=== PATIENT | female | born 1975 | race African-American/Black ===

== ENCOUNTER 2018-09-15 15:42 | Emergency (ER) | payer MEDICAID ==
[2018-09-15] MEDS ORDERED: ASPIRIN 81 MG TABLET, CHEWABLE PO ONE (17:05)
--- NOTE | 2018-09-15 17:22 | ER Document Report ---
ED Medical Screen (RME) - General Chief Complaint: Chest Pain Stated Complaint: CHEST PAIN Time Seen by Provider: 09/15/18 16:55 Mode of Arrival: Ambulatory Information source: Patient Notes: Patient is a 43-year-old female who presents to the emergency department with chief complaint of chest pain, low back pain, episodes of near syncope and dizziness. Patient reports that she was diagnosed with diabetes last year and is supposed to be taking 2 different insulins. Patient reports that she has not had her insulin in several months and has not checked her blood sugar since March. Patient reports nausea but denies any vomiting or diarrhea. Patient states the chest pain is a across her chest and feels like a pressure. Patient denies history of any myocardial infarction. PHYSICAL EXAMINATION: GENERAL: Well-appearing, well-nourished and in no acute distress. LUNGS: Breath sounds clear to auscultation bilaterally and equal. No wheezes rales or rhonchi. HEART: Regular rate and rhythm without murmurs PSYCH: Normal mood, normal affect. SKIN: Warm, Dry, normal turgor, no rashes or lesions noted. I have greeted and performed a rapid initial assessment of this patient. A comprehensive ED assessment and evaluation of the patient, analysis of test results and completion of the medical decision making process will be conducted by additional ED providers. Dictation of this chart was performed using voice recognition software; therefore, there may be some unintended grammatical errors. TRAVEL OUTSIDE OF THE [place] IN LAST 30 DAYS: No - Related Data Allergies/Adverse Reactions: No Known Allergies Allergy (Verified 09/15/18 16:51) Past Medical History - Past Medical History Cardiac Medical History: Reports: Hx Hypercholesterolemia, Hx Hypertension Endocrine Medical History: Reports: Hx Diabetes Mellitus Type 2 Renal/ Medical History: Denies: Hx Peritoneal Dialysis Past Surgical History: Reports: Hx Section, Hx Tubal Ligation Physical Exam - Vital signs Vitals: Temp Pulse Resp BP Pulse Ox 98.3 F 78 20 152/97 H 99 09/15/18 15:58 09/15/18 15:58 09/15/18 15:58 09/15/18 15:58 09/15/18 15:58 Course - Vital Signs Vital signs: Temp Pulse Resp BP Pulse Ox 98.3 F 78 20 152/97 H 99 09/15/18 15:58 09/15/18 15:58 09/15/18 15:58 09/15/18 15:58 09/15/18 15:58 Doctor's Discharge - Discharge Referrals: VIKRAM MORGAN MD [Primary Care Provider] - Follow up as needed
--- NOTE | 2018-09-15 17:56 | RADIOLOGY REPORT (SQ) ---
EXAM DESCRIPTION: CHEST SINGLE VIEW COMPLETED DATE/TIME: 09/15/2018 5:40 pm REASON FOR STUDY: chest pain COMPARISON: None. EXAM PARAMETERS: NUMBER OF VIEWS: One view. TECHNIQUE: Single frontal radiographic view of the chest acquired. RADIATION DOSE: NA LIMITATIONS: None. FINDINGS: LUNGS AND PLEURA: No opacities, masses or pneumothorax. No pleural effusion. MEDIASTINUM AND HILAR STRUCTURES: No masses. Contour normal. HEART AND VASCULAR STRUCTURES: Heart normal in size. Normal vasculature. BONES: No acute findings. HARDWARE: None in the chest. OTHER: No other significant finding. IMPRESSION: NO ACUTE RADIOGRAPHIC FINDING IN THE CHEST. TECHNICAL DOCUMENTATION: JOB ID: [id number] [employer]- All Rights Reserved Reading location - IP/workstation name: [email or web address]
[2018-09-15 18:07] LABS: ABSOLUTE BASOPHILS # (AUTO) 0.1 10^3/uL (0.0-0.2); ABSOLUTE EOSINOPHILS # (AUTO) 0.3 10^3/uL (0.0-0.6); ABSOLUTE MONOCYTES (AUTO) 0.6 10^3/uL (0.1-1.4); ABSOLUTE NEUT (AUTO) 4.5 10^3/uL (1.7-8.2); EOSINOPHILS % (AUTO) 3.2 % (0-6); HEMATOCRIT 39.4 % (36.0-47.0); LYMPHOCYTES % (AUTO) 35.2 % (13-45); MEAN CORPUSCULAR HEMOGLOBIN 22.7 pg (27.0-33.4); MEAN CORPUSCULAR HGB CONC 33.1 g/dL (32.0-36.0); MEAN CORPUSCULAR VOLUME 69 fl (80-97); MONOCYTES % (AUTO) 7.1 % (3-13); PLATELET COUNT 372 10^3/uL (150-450); RED BLOOD COUNT 5.73 10^6/uL (3.72-5.28); RED CELL DISTRIBUTION WIDTH 15.9 % (11.5-14.0); SEGMENTED NEUTROPHILS % (AUTO) 53.5 % (42-78); TOTAL CELLS COUNTED % (AUTO) 100 %; WHITE BLOOD COUNT 8.5 10^3/uL (4.0-10.5)
[2018-09-15 18:26] LABS: ALANINE AMINOTRANSFERASE 12 U/L (9-52); ALKALINE PHOSPHATASE 93 U/L (38-126); ANION GAP 9 (5-19); ASPARTATE AMINO TRANSFERASE 21 U/L (14-36); BILIRUBIN,DIRECT 0.3 mg/dL (0.0-0.4); BILIRUBIN,TOTAL 0.3 mg/dL (0.2-1.3); BLOOD UREA NITROGEN 12 mg/dL (7-20); CALCIUM 9.4 mg/dL (8.4-10.2); CARBON DIOXIDE 27 mmol/L (22-30); CHLORIDE 103 mmol/L (98-107); CREATINE KINASE 233 U/L (30-135); GLUCOSE 120 mg/dL (75-110); POTASSIUM 4.6 mmol/L (3.6-5.0); SODIUM 139.4 mmol/L (137-145); TOTAL PROTEIN 7.4 g/dL (6.3-8.2)
[2018-09-15 18:39] LABS: CREATINE KINASE MB 1.38 ng/mL (<4.55); TROPONIN I < 0.012 ng/mL
[2018-09-15] MEDS ORDERED: LIDOCAINE 1% INJ-PF (10 MG/ML) 30 ML SDV ONE (18:41)
[2018-09-15] MEDS ORDERED: NORMAL SALINE 1000 ML 1,000 ML IV ONE (18:54)
[2018-09-15] MEDS ORDERED: ONDANSETRON HCL INJ/PF 4 MG/2 ML SDV IV ONE ×2 (18:54→21:15)
--- NOTE | 2018-09-15 19:06 | ER Document Report ---
ED General - General Chief Complaint: Chest Pain Stated Complaint: CHEST PAIN Time Seen by Provider: 09/15/18 16:55 Mode of Arrival: Ambulatory TRAVEL OUTSIDE OF THE [place] IN LAST 30 DAYS: No - HPI Notes: 43-year-old female past medical history of hypertension, insulin-dependent diabetes mellitus, and sickle cell anemia presents to the emergency room for chest pain, lower back pain, lightheadedness. She endorses lightheadedness began 1 week ago became more "worse last night where she vomited blood one time. He said the blood was kind of scant and it was not gross. She went to work today said she almost passed out was stumbling had a little bit of chest pain. She says the chest pain is related to coughing and breathing. Endorses fevers, chills, lightheadedness, mild headache, nausea, decreased appetite, low back pain. Patient denies sinus pain, sore throat, diarrhea, urinary symptoms. EKG done in triage no evidence of STEMI or ischemia. - Related Data Allergies/Adverse Reactions: No Known Allergies Allergy (Verified 09/15/18 16:51) Past Medical History - General Information source: Patient - Social History Smoking Status: Current Every Day Smoker Family History: Reviewed & Not Pertinent Patient has suicidal ideation: No Patient has homicidal ideation: No - Past Medical History Cardiac Medical History: Reports: Hx Hypercholesterolemia, Hx Hypertension Endocrine Medical History: Reports: Hx Diabetes Mellitus Type 2 Renal/ Medical History: Denies: Hx Peritoneal Dialysis Past Surgical History: Reports: Hx Section, Hx Tubal Ligation Review of Systems - Review of Systems Constitutional: See HPI EENT: See HPI Cardiovascular: See HPI Respiratory: See HPI Gastrointestinal: See HPI Genitourinary: No symptoms reported Female Genitourinary: No symptoms reported Musculoskeletal: See HPI Skin: No symptoms reported Hematologic/Lymphatic: No symptoms reported Neurological/Psychological: No symptoms reported Physical Exam - Vital signs Vitals: Temp Pulse Resp BP Pulse Ox 98.3 F 78 20 152/97 H 99 09/15/18 15:58 09/15/18 15:58 09/15/18 15:58 09/15/18 15:58 09/15/18 15:58 Interpretation: Normal - General General appearance: Appears well, Alert - HEENT Head: Normocephalic, Atraumatic Eyes: Normal Conjunctiva: Normal Extraocular movements intact: Yes Pupils: PERRL - Respiratory Respiratory status: No respiratory distress Breath sounds: Wheezing Chest palpation: Normal - Cardiovascular Rhythm: Regular Heart sounds: Normal auscultation Murmur: No Pulses: Normal: Radial - Abdominal Inspection: Normal Distension: No distension Bowel sounds: Normal Tenderness: Nontender Organomegaly: No organomegaly - Back Back: Normal, Nontender - Extremities General upper extremity: Normal inspection, Nontender, Normal color, Normal ROM , Normal temperature General lower extremity: Normal inspection, Nontender, Normal color, Normal ROM , Normal temperature, Normal weight bearing. No: Simón's sign - Neurological Neuro grossly intact: Yes Cognition: Normal Orientation: AAOx4 Jose Coma Scale Eye Opening: Spontaneous Helena Coma Scale Verbal: Oriented Jose Coma Scale Motor: Obeys Commands Jose Coma Scale Total: 15 Speech: Normal Motor strength normal: LUE, RUE, LLE, RLE Sensory: Normal - Psychological Associated symptoms: Normal affect, Normal mood - Skin Skin Temperature: Warm Skin Moisture: Dry Skin Color: Normal Course - Re-evaluation Re-evalutation: 09/15/18 19:24 On physical exam patient noted with wheezing, will order DuoNeb. 09/15/18 21:17 Upon reexamination patient was diffuse wheezing bilateral. Ordered a second DuoNeb. X-ray normal, EKG normal, troponin negative. No evidence of anemia. Analysis negative, no evidence of blood. No CVA tenderness. After second DuoNeb wheezing resolved. Patient is safe to discharge home. Will dispense ED rapid Zofran pack. - Vital Signs Vital signs: Temp Pulse Resp BP Pulse Ox 98.3 F 78 25 H 135/88 H 100 09/15/18 15:58 09/15/18 15:58 09/15/18 21:24 09/15/18 21:24 09/15/18 21:24 - Laboratory Result Diagrams: 09/15/18 17:50 09/15/18 17:50 Laboratory results interpreted by me: 09/15/18 09/15/18 17:50 17:50 RBC 5.73 H MCV 69 L MCH 22.7 L RDW 15.9 H Glucose 120 H Creatine Kinase 233 H Discharge - Discharge Clinical Impression: Nausea, Chest pain of uncertain etiology Condition: Stable Disposition: HOME, SELF-CARE Instructions: Chest Wall Pain ([facility]), Chest Pain of Unclear Cause ([facility]) Additional Instructions: You have been seen in the Emergency Department (ED) today for nausea and vomiting. Your work up today has not shown a clear cause for your symptoms. You have been prescribed Zofran; please use as prescribed as needed for your nausea. You were also seen today for chest pain. The exact cause of your pain is unclear. However, based on your cardiac enzyme testing, chest x-ray, and EKG it does not appear that it is from an immediately life-threatening cause at this time. Although your testing here is normal is critical that you follow-up with your primary care physician for continued evaluation of this chest pain and possible stress testing. I recommended you see your physician within the next 24-48 hours to be evaluated for consideration of a stress test. Please return to emergency department immediately if you have worsening of your chest pain, shortness of breath, vomiting, become unable to exert yourself due to pain or difficulty breathing, you pass out, or have any pain that radiates into your arms, jaw, or back. Please also return if you have any additional symptoms that are concerning to you. Return to the Emergency Department (ED) if you develop abdominal pain, bloody vomiting, bloody diarrhea, if you are unable to tolerate fluids due to vomiting , or if you develop other symptoms that concern you. Prescriptions: Ondansetron [Zofran Odt 4 mg Tablet (6 Tab/ER Disp)] 6 tab PO Q6HP PRN #1 dspk PRN Reason: Ondansetron [Zofran Odt 4 mg Tablet] 1 - 2 tab PO Q4H PRN #15 tab.rapdis PRN Reason: For Nausea/Vomiting Referrals: VIKRAM MORGAN MD [[facility]] - Follow up as needed
[2018-09-15 19:22] LABS: APPEARANCE,URINE CLEAR; BILIRUBIN,URINE NEGATIVE (NEGATIVE); COLOR,URINE YELLOW; GLUCOSE, URINE NEGATIVE (NEGATIVE); KETONES,URINE NEGATIVE (NEGATIVE); LEUKOCYTE ESTERASE,URINE NEGATIVE (NEGATIVE); NITRITE,URINE NEGATIVE (NEGATIVE); PROTEIN,URINE NEGATIVE (NEGATIVE); URINE SPECIFIC GRAVITY 1.015; UROBILINOGEN,URINE NEGATIVE mg/dL (<2.0)
[2018-09-15] MEDS ORDERED: IPRATROPIUM/ALBUTEROL 0.5-2.5 MG/3 ML AMPUL NEB ONE ×2 (19:36→20:08)
[2018-09-15 21:26] VITALS: BP 135/88
--- NOTE | 2018-09-16 00:18 | EKG REPORT ---
SEVERITY:- NORMAL ECG - SINUS RHYTHM : Confirmed by: Ivis Solorio 16-Sep-2018 00:18:22
== END 2018-09-15 22:10 | disposition home or self-care (01) ==
LOC: ER 15:42
DX: R07.1 Chest pain on breathing (principal); K92.0 Hematemesis; R06.2 Wheezing; M54.5 Low back pain; R42 Dizziness and giddiness; R50.9 Fever, unspecified; R51 Headache; R63.0 Anorexia; F17.200 Nicotine dependence, unspecified, uncomplicated; I10 Essential (primary) hypertension; E11.9 Type 2 diabetes mellitus without complications; Z79.4 Long term (current) use of insulin
CPT/HCPCS: 93005; 96376; 94640 ×2; 99285; 96361; 96374; 36415; 82553; 82550; 85025; 80053; 81001; 84484; 71045; 93010; J2405; J7030; J7620

== ENCOUNTER 2018-11-30 10:21 | Emergency (ER) | payer MEDICAID ==
--- NOTE | 2018-11-30 11:09 | ER Document Report ---
ED General - General Chief Complaint: Abdominal Pain Stated Complaint: STOMACH PAIN Time Seen by Provider: 11/30/18 10:52 Notes: 43-year-old female presents with no period for 1 month. She normally gets a menstrual cycle each month but it does not come all this month. She had sex early in October and is since been having unprotected sex with the same person. She has lower abdominal pain as well with some increased discharge. Denies fevers or vomiting. History of tubal ligation. TRAVEL OUTSIDE OF THE [place] IN LAST 30 DAYS: No - Related Data Allergies/Adverse Reactions: No Known Allergies Allergy (Verified 09/15/18 16:51) Past Medical History - Social History Smoking Status: Current Some Day Smoker Family History: Reviewed & Not Pertinent Patient has suicidal ideation: No Patient has homicidal ideation: No - Past Medical History Cardiac Medical History: Reports: Hx Hypercholesterolemia, Hx Hypertension Endocrine Medical History: Reports: Hx Diabetes Mellitus Type 2 Renal/ Medical History: Denies: Hx Peritoneal Dialysis Past Surgical History: Reports: Hx Section, Hx Tubal Ligation Review of Systems - Review of Systems Notes: REVIEW OF SYSTEMS GEN: Denies fever, chills, weight loss ENT: Denies sore throat, nasal discharge, ear pain EYES: Denies blurry vision, eye pain, discharge CV: Denies chest pain, palpitations, edema RESP: Denies cough, shortness of breath, wheezing GI: Abdominal pain MSK: Denies joint pain/swelling, edema, SKIN: Denies rash, skin lesions LYMPH: Denies swollen glands/lymph nodes NEURO: Denies headache, focal weakness or numbness, dizziness PSYCH: Denies depression, suicidal or homicidal ideation PHYSICAL EXAMINATION General: No acute distress, well-nourished Head: Atraumatic, normocephalic ENT: Mouth normal, oropharynx moist, no exudates or tonsillar enlargement Eyes: Conjunctiva normal, pupils equal, lids normal Neck: No JVD, supple, no guarding CVS: Normal rate, regular rhythm, no murmurs Resp: No resp distress, equal and normal breath sounds bilaterally GI: Nondistended, soft, will suprapubic tenderness to palpation, no rebound or guarding Ext: No deformities, no edema, normal range of motion in upper and lower ext Back: No CVA or midline TTP Skin: No rash, warm Lymphatic: No lymphadeopathy noted Neuro: Awake, alert. Face symmetric. GCS 15. Physical Exam - Vital signs Vitals: Temp Pulse Resp BP Pulse Ox 98.2 F 78 16 144/85 H 98 11/30/18 10:45 11/30/18 10:45 11/30/18 10:45 11/30/18 10:45 11/30/18 10:45 Course - Re-evaluation Re-evalutation: 11/30/18 11:09 Amenorrhea with lower abdominal pain mild tenderness and discharge with unprotected sex likely STI plus or minus . 11/30/18 11:25 UA U negative. Wet prep negative. Other than leukorrhea. Will treat empirically for chlamydia gonorrhea, test will be pending. Patient will be discharged to follow-up with women's health. I have discussed with the patient there likely diagnosis, aftercare plan, follow-up plans and my usual and customary return precautions. They verbalized understanding of this. 11/30/18 11:46 - Vital Signs Vital signs: Temp Pulse Resp BP Pulse Ox 98.2 F 78 16 144/85 H 98 11/30/18 10:45 11/30/18 10:45 11/30/18 10:45 11/30/18 10:45 11/30/18 10:45 Discharge - Discharge Clinical Impression: Pelvic pain Condition: Good Disposition: HOME, SELF-CARE Instructions: Abdominal Pain ([facility]) Additional Instructions: We treated you just in case for STDs, and your testing should be available in 1- 2 days. If you do not get a call from us please call us to inquire about your results. You are not and we did not find an emergency cause of your missed. But you need to follow-up with women's health for further testing. I Referrals: [facility] [Provider Group] - Follow up as needed [facility] [Provider Group] - Follow up as needed
[2018-11-30 11:14] LABS: APPEARANCE,URINE SLIGHTLY-CLOUDY; BILIRUBIN,URINE NEGATIVE (NEGATIVE); COLOR,URINE YELLOW; GLUCOSE, URINE NEGATIVE (NEGATIVE); KETONES,URINE NEGATIVE (NEGATIVE); LEUKOCYTE ESTERASE,URINE NEGATIVE (NEGATIVE); NITRITE,URINE NEGATIVE (NEGATIVE); PROTEIN,URINE NEGATIVE (NEGATIVE); URINE SPECIFIC GRAVITY 1.017; UROBILINOGEN,URINE NEGATIVE mg/dL (<2.0)
[2018-11-30] MEDS ORDERED: AZITHROMYCIN 1 GM SUSP PACKET PO ONE (11:24)
[2018-11-30] MEDS ORDERED: CEFTRIAXONE INJ 250 MG VIAL IM ONE (11:25)
[2018-11-30 11:28] LABS: BACTERIA (WET MOUNT) 4+ BACTERIA SEEN; EPITHELIALS (WET MOUNT) 4+ EPITHELIALS SEEN; T.VAGINALIS (WET MOUNT) NO TRICHOMONAS SEEN; WBCS (WET MOUNT) 1+ WBCS SEEN; YEAST (WET MOUNT) NO YEAST SEEN
[2018-11-30 12:40] VITALS: BP 149/93
[2018-11-30 13:08] LABS: CHLAM PCR NOT DETECTED (NOT DETECT); GON PCR NOT DETECTED (NOT DETECT)
== END 2018-11-30 12:41 | disposition home or self-care (01) ==
LOC: ER 10:21
DX: R10.2 Pelvic and perineal pain (principal); N89.8 Other specified noninflammatory disorders of vagina; N91.2 Amenorrhea, unspecified; I10 Essential (primary) hypertension; E11.9 Type 2 diabetes mellitus without complications; F17.200 Nicotine dependence, unspecified, uncomplicated; Z98.51 Tubal ligation status
CPT/HCPCS: 99284; 96372; 87210; 81025; 81001; 87491; 87591; Q0144; J0696

== ENCOUNTER 2018-12-02 10:19 | Emergency (ER) | payer MEDICAID ==
--- NOTE | 2018-12-02 10:39 | ER Document Report ---
ED Medical Screen (RME) - General Chief Complaint: Weakness Stated Complaint: WEAKNESS TRAVEL OUTSIDE OF THE [place] IN LAST 30 DAYS: No - HPI Notes: 12/02/18 10:39 Recently moved to the area of all of her home medications history of diabetes hypertension smoking stating feeling weak. - Related Data Allergies/Adverse Reactions: No Known Allergies Allergy (Verified 12/02/18 10:21) Past Medical History - Past Medical History Cardiac Medical History: Reports: Hx Hypercholesterolemia, Hx Hypertension Endocrine Medical History: Reports: Hx Diabetes Mellitus Type 2 Renal/ Medical History: Denies: Hx Peritoneal Dialysis Past Surgical History: Reports: Hx Section, Hx Tubal Ligation Review of Systems - Review of Systems Constitutional: Weakness Physical Exam - Vital signs Vitals: Temp Pulse Resp BP Pulse Ox 97.8 F 81 16 144/87 H 98 12/02/18 10:24 12/02/18 10:24 12/02/18 10:24 12/02/18 10:24 12/02/18 10:24 - Respiratory Breath sounds: Wheezing - Cardiovascular Rhythm: Regular Heart sounds: Normal auscultation Course - Vital Signs Vital signs: Temp Pulse Resp BP Pulse Ox 97.8 F 81 16 144/87 H 98 12/02/18 10:24 12/02/18 10:24 12/02/18 10:24 12/02/18 10:24 12/02/18 10:24
[2018-12-02] MEDS ORDERED: IPRATROPIUM/ALBUTEROL 0.5-2.5 MG/3 ML AMPUL NEB ONE (10:40)
[2018-12-02 11:26] LABS: ABSOLUTE EOSINOPHILS # (AUTO) 0.3 10^3/uL (0.0-0.6); ABSOLUTE LYMPHOCYTES (AUTO) 2.1 10^3/uL (0.5-4.7); ABSOLUTE MONOCYTES (AUTO) 0.6 10^3/uL (0.1-1.4); ABSOLUTE NEUT (AUTO) 6.2 10^3/uL (1.7-8.2); BASOPHILS % (AUTO) 0.5 % (0-2); EOSINOPHILS % (AUTO) 3.6 % (0-6); HEMATOCRIT 40.5 % (36.0-47.0); HEMOGLOBIN 13.4 g/dL (12.0-15.5); LYMPHOCYTES % (AUTO) 23.1 % (13-45); MEAN CORPUSCULAR HEMOGLOBIN 22.8 pg (27.0-33.4); MEAN CORPUSCULAR HGB CONC 33.1 g/dL (32.0-36.0); MEAN CORPUSCULAR VOLUME 69 fl (80-97); MONOCYTES % (AUTO) 6.2 % (3-13); PLATELET COUNT 389 10^3/uL (150-450); RED BLOOD COUNT 5.87 10^6/uL (3.72-5.28); SEGMENTED NEUTROPHILS % (AUTO) 66.6 % (42-78); TOTAL CELLS COUNTED % (AUTO) 100 %; WHITE BLOOD COUNT 9.3 10^3/uL (4.0-10.5)
[2018-12-02 11:27] LABS: APPEARANCE,URINE SLIGHTLY-CLOUDY; BILIRUBIN,URINE NEGATIVE (NEGATIVE); COLOR,URINE YELLOW; GLUCOSE, URINE NEGATIVE (NEGATIVE); KETONES,URINE NEGATIVE (NEGATIVE); LEUKOCYTE ESTERASE,URINE NEGATIVE (NEGATIVE); NITRITE,URINE NEGATIVE (NEGATIVE); PROTEIN,URINE NEGATIVE (NEGATIVE); URINE SPECIFIC GRAVITY 1.019; UROBILINOGEN,URINE NEGATIVE mg/dL (<2.0)
[2018-12-02 11:40] LABS: ANION GAP 9 (5-19); BLOOD UREA NITROGEN 12 mg/dL (7-20); CALCIUM 9.5 mg/dL (8.4-10.2); CARBON DIOXIDE 28 mmol/L (22-30); CHLORIDE 105 mmol/L (98-107); GLUCOSE 145 mg/dL (75-110); SODIUM 141.6 mmol/L (137-145)
[2018-12-02 11:53] LABS: URINE AMPHETAMINES SCREEN NEGATIVE; URINE BARBITURATES SCREEN NEGATIVE; URINE BENZODIAZEPINES SCREEN NEGATIVE; URINE COCAINE SCREEN NEGATIVE; URINE MARIJUANA (THC) SCREEN UNCONFIRMED POSITIVE; URINE METHADONE SCREEN NEGATIVE; URINE PHENCYCLIDINE SCREEN NEGATIVE
[2018-12-02] MEDS ORDERED: ALBUTEROL SULFATE HFA (90 MCG/PUFF) 8 GM MDI (1 MDI/ER DISP) IH ONE (13:20)
[2018-12-02 13:57] VITALS: BP 136/101
--- NOTE | 2018-12-02 15:28 | ER Document Report ---
Entered by SUZANNE HIDALGO SCRIBE 12/02/18 [id number] Acting as scribe for:VALERIA BARNHART MD ED General - General Chief Complaint: Weakness Stated Complaint: WEAKNESS Time Seen by Provider: 12/02/18 10:49 Mode of Arrival: Ambulatory Information source: Patient Notes: Patient is a 43-year-old female with hypertension, diabetes type 2, sickle cell anemia presents emergency department complaining of general malaise and weakness onset 1 month ago. Patient states "I feel so not good". Patient states that she ran out of her diabetes and hypertension medication approximately 8 months ago. She states that she was prescribed metformin, HCTZ and insulin. Patient also complains of a productive cough and nasal congestion further stating she believes she is "about to get a cold". She also expresses concern for not having a menstrual cycle this month. Patient was seen in the emergency department approximately 2 days ago complaining of lower abdominal pain after he has Rocephin and Zithromax receiving prophylactic. TRAVEL OUTSIDE OF THE [place] IN LAST 30 DAYS: No - Related Data Allergies/Adverse Reactions: No Known Allergies Allergy (Verified 12/02/18 10:21) Past Medical History - General Information source: Patient - Social History Smoking Status: Current Every Day Smoker Cigarette use (# per day): Yes - 3 cigs a day Chew tobacco use (# tins/day): No Smoking Education Provided: No Frequency of alcohol use: Occasional Drug Abuse: Marijuana - daily Family History: Reviewed & Not Pertinent Patient has suicidal ideation: No Patient has homicidal ideation: No - Past Medical History Cardiac Medical History: Reports: Hx Hypercholesterolemia, Hx Hypertension Endocrine Medical History: Reports: Hx Diabetes Mellitus Type 2 Past Surgical History: Reports: Hx Section, Hx Tubal Ligation Review of Systems - Review of Systems Constitutional: See HPI, Malaise, Weakness EENT: No symptoms reported Cardiovascular: No symptoms reported Respiratory: No symptoms reported Gastrointestinal: No symptoms reported Genitourinary: No symptoms reported Female Genitourinary: No symptoms reported Musculoskeletal: No symptoms reported Skin: No symptoms reported Hematologic/Lymphatic: No symptoms reported Neurological/Psychological: No symptoms reported -: Yes All other systems reviewed and negative Physical Exam - Vital signs Vitals: Temp Pulse Resp BP Pulse Ox 97.8 F 81 16 144/87 H 98 12/02/18 10:24 12/02/18 10:24 12/02/18 10:24 12/02/18 10:24 12/02/18 10:24 - Notes Notes: GENERAL: Alert, interacts well. No acute distress. HEAD: Normocephalic, atraumatic. EYES: Pupils equal, round, and reactive to light. Extraocular movements intact. ENT: Oral mucosa moist, tongue midline. NECK: Full range of motion. Supple. Trachea midline. LUNGS: Rhonchi with cough. No respiratory distress. HEART: Regular rate and rhythm. No murmurs, gallops, or rubs. ABDOMEN: Soft, non-tender. Non-distended. Bowel sounds present in all 4 quadrants. EXTREMITIES: Moves all 4 extremities spontaneously. NEUROLOGICAL: Alert and oriented x3. Normal speech. PSYCH: Normal affect, normal mood. SKIN: Warm, dry, normal turgor. No rashes or lesions noted. Course - Re-evaluation Re-evalutation: 12/02/18 13:14 Patient's hemoglobin A1c is only 6.8, she has been off all medications for approximately 7-8 months. I do not understand why she had been on metformin and insulin in the past. She states she was treated with hydrochlorothiazide for her high blood pressure. Seen with her blood pressure is running, I doubt hydrochlorothiazide is adequate. She does report foot and ankle edema when she is on her feet all day. - Vital Signs Vital signs: Temp Pulse Resp BP Pulse Ox 97.8 F 81 16 144/87 H 98 12/02/18 10:24 12/02/18 10:24 12/02/18 10:24 12/02/18 11:31 12/02/18 10:24 - Laboratory Result Diagrams: 12/02/18 10:59 12/02/18 10:59 Laboratory results interpreted by me: 12/02/18 12/02/18 12/02/18 10:59 10:59 10:59 RBC 5.87 H MCV 69 L MCH 22.8 L RDW 16.0 H Glucose 145 H Hemoglobin A1c % 6.8 H Discharge - Discharge Clinical Impression: Bronchitis with bronchospasm Diabetes Qualifiers: Diabetes mellitus type: type 2 Diabetes mellitus long-term insulin use: without termite technician use Diabetes mellitus complication status: without complication Qualified Code(s): E11.9 - Type 2 diabetes mellitus without complications High blood pressure Qualifiers: Hypertension type: essential hypertension Qualified Code(s): I10 - Essential (primary) hypertension Disposition: HOME, SELF-CARE I personally performed the services described in the documentation, reviewed and edited the documentation which was dictated to the scribe in my presence, and it accurately records my words and actions.
== END 2018-12-02 13:57 | disposition home or self-care (01) ==
LOC: ER 10:19
DX: J40 Bronchitis, not specified as acute or chronic (principal); J98.01 Acute bronchospasm; E11.9 Type 2 diabetes mellitus without complications; T38.3X6A Underdosing of insulin and oral hypoglycemic [antidiabetic] drugs, initial encounter; I10 Essential (primary) hypertension; T50.2X6A Underdosing of carbonic-anhydrase inhibitors, benzothiadiazides and other diuretics, initial encounter; Z91.128 Patient's intentional underdosing of medication regimen for other reason; Z91.14 Patient's other noncompliance with medication regimen; R53.1 Weakness; R53.81 Other malaise; R05 Cough; R09.81 Nasal congestion; F17.210 Nicotine dependence, cigarettes, uncomplicated; R09.89 Other specified symptoms and signs involving the circulatory and respiratory systems; R60.0 Localized edema; D57.1 Sickle-cell disease without crisis
CPT/HCPCS: 94640; 99283; 36415; 85025; 80048; 81001; 80307; 83036; J3490; J7620

== ENCOUNTER 2019-01-08 11:20 | Emergency (ER) | payer MEDICAID ==
--- NOTE | 2019-01-08 12:40 | RADIOLOGY REPORT (SQ) ---
EXAM DESCRIPTION: HAND RIGHT 3 VIEWS COMPLETED DATE/TIME: 01/08/2019 12:32 pm REASON FOR STUDY: pain, swelling COMPARISON: None. EXAM PARAMETERS: NUMBER OF VIEWS: Three views. TECHNIQUE: AP, lateral and oblique radiographic images acquired of the right hand. LIMITATIONS: None. FINDINGS: MINERALIZATION: Normal. BONES: No acute fracture or dislocation. No worrisome bone lesions. JOINTS: No effusions. SOFT TISSUES: No soft tissue swelling. No foreign body. OTHER: No other significant finding. IMPRESSION: NEGATIVE STUDY OF THE RIGHT HAND. NO RADIOGRAPHIC EVIDENCE OF ACUTE INJURY. TECHNICAL DOCUMENTATION: JOB ID: [id number] [employer] All Rights Reserved Reading location - IP/workstation name: [email or web address]
--- NOTE | 2019-01-08 13:22 | ER Document Report ---
HPI - HPI Time Seen by Provider: 01/08/19 11:51 Pain Level: 5 Notes: Patient is a 43-year-old female who presents to the emergency department with complaints of right hand pain and swelling. She states that her symptoms started approximately 1 week ago. 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 - REPRODUCTIVE Reproductive: DENIES: : Past Medical History - General Information source: Patient - Social History Smoking Status: Current Every Day Smoker Frequency of alcohol use: None Drug Abuse: None Lives with: Family Family History: Reviewed & Not Pertinent Patient has suicidal ideation: No Patient has homicidal ideation: No - Past Medical History Cardiac Medical History: Reports: Hx Hypercholesterolemia, Hx Hypertension Endocrine Medical History: Reports: Hx Diabetes Mellitus Type 2 Renal/ Medical History: Denies: Hx Peritoneal Dialysis Past Surgical History: Reports: Hx Section, Hx Tubal Ligation Vertical Provider Document - CONSTITUTIONAL Notes: PHYSICAL EXAMINATION: GENERAL: Well-appearing, well-nourished and in no acute distress. HEAD: Atraumatic, normocephalic. EYES: Pupils equal round extraocular movements intact, conjunctiva are normal. ENT: Nares patent NECK: Normal range of motion LUNGS: No respiratory distress Musculoskeletal: Normal range of motion, swelling without erythema or ecchymosis noted to right hand, cap refill less than 3 seconds, normal motor and sensation distal to area of pain. NEUROLOGICAL: Normal speech, normal gait. PSYCH: Normal mood, normal affect. SKIN: Warm, Dry, normal turgor, no rashes or lesions noted. - INFECTION CONTROL TRAVEL OUTSIDE OF THE [place] IN LAST 30 DAYS: No Course - Re-evaluation Re-evalutation: X-ray of the hand is negative for any fracture or dislocation. Patient will be discharged in stable condition with plans to follow-up with her primary care provider if the pain continues. - Vital Signs Vital signs: Temp Pulse Resp BP Pulse Ox 98.5 F 76 16 132/88 H 98 01/08/19 11:30 01/08/19 11:30 01/08/19 11:30 01/08/19 11:30 01/08/19 11:30 Discharge - Discharge Clinical Impression: Hand pain, right, Arthritis Condition: Stable Disposition: HOME, SELF-CARE Additional Instructions: The x-ray that was taken of your hand today was normal, it did not show any fracture or dislocation. The pain you are experiencing is possibly being caused by some form of arthritis. Please try taking the medications I have prescribed. Do not take any ibuprofen or Motrin while taking this medication as it is in a similar class. Please call your primary care provider to schedule a follow-up appointment. Return to the emergency department if you experience worsening pain, increasing swelling or redness or red streaks from the area. Prescriptions: Diclofenac Sodium [Voltaren 50 mg Tablet.dr] 50 mg PO TID #30 tablet.dr Forms: Return to Work
[2019-01-08 13:39] VITALS: BP 149/91
== END 2019-01-08 13:41 | disposition home or self-care (01) ==
LOC: ER 11:20
DX: M79.641 Pain in right hand (principal); M79.89 Other specified soft tissue disorders; M19.90 Unspecified osteoarthritis, unspecified site; I10 Essential (primary) hypertension; E11.9 Type 2 diabetes mellitus without complications; F17.200 Nicotine dependence, unspecified, uncomplicated
CPT/HCPCS: 99283

== ENCOUNTER 2019-02-05 09:00 | Emergency (ER) | payer MEDICAID ==
[2019-02-05] MEDS ORDERED: IBUPROFEN 600 MG TABLET PO ONE (09:34)
--- NOTE | 2019-02-05 09:37 | ER Document Report ---
ED Extremity Problem, Lower - General Chief Complaint: Foot Pain Stated Complaint: HEEL PAIN Time Seen by Provider: 02/05/19 09:15 Primary Care Provider: DANIELA SWANSON DPM [ACTIVE STAFF] - Follow up as needed Mode of Arrival: Ambulatory Information source: Patient Notes: 43-year-old female presents to ED for complaint of pain to the right heel. She states she has had this pain for 6 months to a year but has been getting worse over the last 2 months. She states now the pain is so bad she can barely walk. She states it is starting to radiate up her calf. She has not had any injuries there is no swelling. No open sores. Patient is alert oriented respirations regular and unlabored speaking in full sentences walks with a even steady gait. TRAVEL OUTSIDE OF THE [place] IN LAST 30 DAYS: No - HPI Patient complains to provider of: Pain. No: Injury, Swelling Location: Foot Occurred: Other Onset/Duration: Gradual - Over a year, Worse Quality of pain: Burning, Sharp Pain Level: 5 Recent injury: No Associated symptoms: Painful ambulation Exacerbated by: Movement, Walking Relieved by: Nothing - Related Data Allergies/Adverse Reactions: No Known Allergies Allergy (Verified 02/05/19 09:03) Past Medical History - General Information source: Patient - Social History Smoking Status: Current Every Day Smoker Cigarette use (# per day): Yes - 1 cig Chew tobacco use (# tins/day): No Smoking Education Provided: Yes - 4 min Frequency of alcohol use: None Drug Abuse: None Occupation: motel Lives with: Family Family History: Reviewed & Not Pertinent Patient has suicidal ideation: No Patient has homicidal ideation: No - Past Medical History Cardiac Medical History: Reports: Hx Hypercholesterolemia, Hx Hypertension Pulmonary Medical History: Reports: None EENT Medical History: Reports: None Neurological Medical History: Reports: None Endocrine Medical History: Reports: Hx Diabetes Mellitus Type 2 Renal/ Medical History: Reports: None Malignancy Medical History: Reports: None GI Medical History: Reports: None Musculoskeletal Medical History: Reports None Skin Medical History: Reports None Psychiatric Medical History: Reports: None Traumatic Medical History: Reports: None Infectious Medical History: Reports: None Past Surgical History: Reports: Hx Section, Hx Cholecystectomy, Hx Tub al Ligation - Immunizations Immunizations up to date: Yes Review of Systems - Review of Systems Constitutional: No symptoms reported EENT: No symptoms reported Cardiovascular: No symptoms reported Respiratory: No symptoms reported Gastrointestinal: No symptoms reported Genitourinary: No symptoms reported Female Genitourinary: No symptoms reported Musculoskeletal: Other - Pain in right heel to palpation or movement of the foot going up the back of the leg if you move the foot Skin: No symptoms reported Hematologic/Lymphatic: No symptoms reported Neurological/Psychological: No symptoms reported Physical Exam - Vital signs Vitals: Temp Pulse Resp BP Pulse Ox 98.0 F 79 16 134/77 H 95 02/05/19 09:04 02/05/19 09:04 02/05/19 09:04 02/05/19 09:04 02/05/19 09:04 Interpretation: Normal - General General appearance: Appears well, Alert - HEENT Head: Normocephalic, Atraumatic Eyes: Normal Pupils: PERRL - Respiratory Respiratory status: No respiratory distress Chest status: Nontender Breath sounds: Normal Chest palpation: Normal - Cardiovascular Rhythm: Regular Heart sounds: Normal auscultation Murmur: No - Abdominal Inspection: Normal Distension: No distension Bowel sounds: Normal Tenderness: Nontender Organomegaly: No organomegaly - Back Back: Normal, Nontender - Extremities General upper extremity: Normal inspection, Nontender, Normal color, Normal ROM, Normal temperature General lower extremity: Normal inspection, Normal color, Normal ROM, Normal temperature, Normal weight bearing. No: Simón's sign Foot: Tender - Right heel, No evidence of FB. No: Abrasion, Deformity, Ecchymosis, Edema, Instability, Metatarsal compress. pain, Nail injury, Navicular tenderness, Puncture wound, Tender 5th metatarsal, Unable to bear weight - Neurological Neuro grossly intact: Yes Cognition: Normal Orientation: AAOx4 [place] Coma Scale Eye Opening: Spontaneous Jose Coma Scale Verbal: Oriented Jose Coma Scale Motor: Obeys Commands Jose Coma Scale Total: 15 Speech: Normal Motor strength normal: LUE, RUE, LLE, RLE Sensory: Normal - Psychological Associated symptoms: Normal affect, Normal mood - Skin Skin Temperature: Warm Skin Moisture: Dry Skin Color: Normal Course - Re-evaluation Re-evalutation: 02/05/19 13:34 Patient was instructed on exercises for feet, use of ice, and need to follow-up with podiatry for heel spurs. X-rays were discussed with patient and written report of x-rays given to patient. - Vital Signs Vital signs: Temp Pulse Resp BP Pulse Ox 97.3 F 63 18 133/87 H 100 02/05/19 11:00 02/05/19 11:00 02/05/19 11:00 02/05/19 11:00 02/05/19 11:00 - Diagnostic Test Radiology reviewed: Image reviewed, Reports reviewed Discharge - Discharge Clinical Impression: Heel spur Qualifiers: Laterality: right Qualified Code(s): M77.31 - Calcaneal spur, right foot Condition: Stable Disposition: HOME, SELF-CARE Additional Instructions: Plantar Fasciitis or Heel Spur Plantar fasciitis is an inflammation of a ligament on the underside of the foot. It can be caused by injury, overuse such as running, or poorly fitting shoes. There may be a bone spur on the heel if inflammation has persisted a long time. Plantar fasciitis is treated with stretching exercises and antiinflammatory medicine. More severe cases may require injection of cortisone. It may take several weeks to get better. If nothing gives relief, an operation to remove the heel spur may help. Call or return if there is redness, increasing pain, swelling, fever, or any other new symptoms. Exercises for the Foot Muscles Stretching and strengthening of the foot muscles is an important part of recovery from injury, as well as in treatment and prevention of overuse syndromes like plantar fasciitis. TOWEL CURLS: Put your foot on a dry towel. Curl your toes to pick it up, then drop it. As it becomes easier, use a heavier towel. Repeat 20 times, twice daily. DIETRICH CURLS: Lift and turn your knee, so your foot is against the opposite leg about mid-dietrich. Try to "grab" the entire dietrich bone with your toes, while moving your foot up and down the leg for one minute. Repeat twice daily. TOE LIFTS: Put your opposite foot over your 2nd to 5th toes. Now lift the toes up, pushing the other foot upward. Repeat 10 times, twice daily. Repeat using the large toe. EVERSIONS: Cross the opposite foot over, placing the heel just behind the 4th and 5th toes. Try to lift up the outside of the bottom foot. Hold 10 seconds. Repeat twice daily. Ice Packs Apply ice packs frequently against the painful area. Many different schedules are recommended, such as "20 minutes on, 20 minutes off" or "one hour ice, two hours rest." If you need to work, you may need to go longer between ice treatments. You should plan to have the area ice packed AT LEAST one fourth of the time. The ice should be applied over the wrap, tape, or splint, or over a layer of cloth -- not directly against the skin. Some ice bags have a built-in cloth and can be put directly on the skin. Ibuprofen Ibuprofen is an excellent, safe drug for pain control. In addition, it has potent antiinflammatory effects which are beneficial, especially in the treatment of injuries, arthritis, or tendonitis. It's best to take ibuprofen with food. Persons with ulcer disease or allergy to aspirin should notify their physician of this before taking ibuprofen. Take the medication exactly as prescribed. Don't take additional doses unless instructed to do so by your doctor. If you develop wheezing, shortness of breath, hives, faintness, stomach pain, vomiting, or dark black stools, return for re-evaluation at once. FOLLOW-UP CARE: If you have been referred to a physician for follow-up care, call the physicians office for an appointment as you were instructed or within the next two days. If you experience worsening or a significant change in your symptoms, notify the physician immediately or return to the Emergency Department at any time for re-evaluation. Forms: Elevated Blood Pressure, Smoking Cessation Education, Return to Work Referrals: DANIELA SWANSON DPM [ACTIVE STAFF] - Follow up as needed
--- NOTE | 2019-02-05 10:18 | RADIOLOGY REPORT (SQ) ---
EXAM DESCRIPTION: FOOT RIGHT COMPLETE COMPLETED DATE/TIME: 02/05/2019 10:02 am REASON FOR STUDY: pain for 6 months to a year getting much worse COMPARISON: None. NUMBER OF VIEWS: Three views. TECHNIQUE: AP, lateral and oblique radiographic images acquired of the right foot. LIMITATIONS: None. FINDINGS: MINERALIZATION: Normal. BONES: No acute fracture or dislocation. Small subchondral cystic changes in the head of the first m etatarsal bone at the base of the proximal phalanx, first toe. Osteophytes off of the first metatars al head. Small plantar calcaneal spur. JOINTS: No effusions. SOFT TISSUES: No soft tissue swelling. No foreign body. OTHER: No other significant finding. IMPRESSION: 1. No acute osseous findings. 2. Mild degenerative changes first metatarsophalangeal joint. 3. Small calcaneal spur. TECHNICAL DOCUMENTATION: JOB ID: [id number] [employer]- All Rights Reserved Reading location - IP/workstation name: [email or web address]
[2019-02-05 11:03] VITALS: BP 133/87
== END 2019-02-05 11:03 | disposition home or self-care (01) ==
LOC: ER 09:00
DX: M77.31 Calcaneal spur, right foot (principal); M79.671 Pain in right foot; F17.210 Nicotine dependence, cigarettes, uncomplicated; Z71.6 Tobacco abuse counseling; I10 Essential (primary) hypertension; E11.9 Type 2 diabetes mellitus without complications
CPT/HCPCS: 99406; 99283; 73630; J3490

== ENCOUNTER 2019-03-23 09:55 | Emergency (ER) | payer MEDICAID ==
--- NOTE | 2019-03-23 10:24 | ER Document Report ---
ED Medical Screen (RME) - General Chief Complaint: Abscess Stated Complaint: POSSIBLE ABCESS Time Seen by Provider: 03/23/19 10:19 TRAVEL OUTSIDE OF THE [place] IN LAST 30 DAYS: No - HPI Notes: 03/23/19 10:22 Patient is a 43-year-old female with a history of hypertension and current diet- controlled diabetes who presents complaining of insect bite to her left medial thigh 2 days ago. Patient states that she had a small bump at that time, but over the past couple days has significantly enlarged and become more painful. She has not noticed any drainage. Patient does have some associated nausea. Denies any tick bite or being in the [place]/tall grass. Denies drug allergies or history of MRSA. Denies FIGUEROA, fever, neck pain, URI, CP, SOB, Abd pain, or rash. I have treated and performed a rapid initial assessment of this patient. A comprehensive ED assessment and evaluation of the patient, analysis of test results and completion of medical decision making process will be conducted by additional ED providers. PHYSICAL EXAMINATION: GENERAL: Well-appearing, well-nourished and in no acute distress. A&Ox4. Answers questions appropriately. LUNGS: Breath sounds clear to auscultation bilaterally and equal. No wheezes rales or rhonchi. HEART: Regular rate and rhythm without murmurs, rubs, gallops. Left medial proximal leg: + significant area of erythema/warmth noted with induration in the center and associated tenderness. No purulence noted. - Related Data Allergies/Adverse Reactions: No Known Allergies Allergy (Verified 02/05/19 09:03) Past Medical History - Past Medical History Cardiac Medical History: Reports: Hx Hypercholesterolemia, Hx Hypertension Endocrine Medical History: Reports: Hx Diabetes Mellitus Type 2 Renal/ Medical History: Denies: Hx Peritoneal Dialysis Past Surgical History: Reports: Hx Section, Hx Cholecystectomy, Hx Tubal Ligation - Immunizations Immunizations up to date: Yes Physical Exam - Vital signs Vitals: Temp Pulse Resp BP Pulse Ox 99.2 F 79 20 152/98 H 98 03/23/19 10:13 03/23/19 10:13 03/23/19 10:13 03/23/19 10:13 03/23/19 10:13 Course - Vital Signs Vital signs: Temp Pulse Resp BP Pulse Ox 99.2 F 79 20 152/98 H 98 03/23/19 10:13 03/23/19 10:13 03/23/19 10:13 03/23/19 10:13 03/23/19 10:13
[2019-03-23 10:53] LABS: ABSOLUTE EOSINOPHILS # (AUTO) 0.2 10^3/uL (0.0-0.6); ABSOLUTE LYMPHOCYTES (AUTO) 1.8 10^3/uL (0.5-4.7); ABSOLUTE MONOCYTES (AUTO) 0.7 10^3/uL (0.1-1.4); ABSOLUTE NEUT (AUTO) 7.4 10^3/uL (1.7-8.2); BASOPHILS % (AUTO) 0.3 % (0-2); EOSINOPHILS % (AUTO) 1.6 % (0-6); HEMATOCRIT 37.2 % (36.0-47.0); HEMOGLOBIN 12.1 g/dL (12.0-15.5); LYMPHOCYTES % (AUTO) 17.7 % (13-45); MEAN CORPUSCULAR HEMOGLOBIN 22.9 pg (27.0-33.4); MEAN CORPUSCULAR HGB CONC 32.4 g/dL (32.0-36.0); MEAN CORPUSCULAR VOLUME 71 fl (80-97); MONOCYTES % (AUTO) 6.5 % (3-13); PLATELET COUNT 335 10^3/uL (150-450); RED BLOOD COUNT 5.26 10^6/uL (3.72-5.28); RED CELL DISTRIBUTION WIDTH 14.8 % (11.5-14.0); SEGMENTED NEUTROPHILS % (AUTO) 73.9 % (42-78); TOTAL CELLS COUNTED % (AUTO) 100 %
[2019-03-23 11:14] LABS: ALANINE AMINOTRANSFERASE 18 U/L (9-52); ALBUMIN 3.8 g/dL (3.5-5.0); ALKALINE PHOSPHATASE 78 U/L (38-126); ANION GAP 8 (5-19); ASPARTATE AMINO TRANSFERASE 17 U/L (14-36); BILIRUBIN,DIRECT 0.2 mg/dL (0.0-0.4); BILIRUBIN,TOTAL 0.2 mg/dL (0.2-1.3); BLOOD UREA NITROGEN 8 mg/dL (7-20); CALCIUM 9.5 mg/dL (8.4-10.2); CARBON DIOXIDE 27 mmol/L (22-30); CHLORIDE 105 mmol/L (98-107); GLUCOSE 143 mg/dL (75-110); POTASSIUM 4.4 mmol/L (3.6-5.0); TOTAL PROTEIN 6.9 g/dL (6.3-8.2)
[2019-03-23] MEDS ORDERED: CLINDAMYCIN 600 MG/D5W RTU 600 MG/50 ML RTUPB IV ONE (11:31)
[2019-03-23] MEDS ORDERED: ONDANSETRON HCL INJ/PF 4 MG/2 ML SDV IV ONE (11:32)
[2019-03-23] MEDS ORDERED: MORPHINE SULFATE 10 MG/ML INJ IV ONE (11:32)
--- NOTE | 2019-03-23 12:22 | RADIOLOGY REPORT (SQ) ---
EXAM DESCRIPTION: U/S EXTREMITY NONVASCULAR LTD COMPLETED DATE/TIME: 03/23/2019 12:06 pm REASON FOR STUDY: Left medial thigh abscess COMPARISON: None. TECHNIQUE: Static and real time gillette scale ultrasound Doppler spectral analysis, and color Doppler a cquired in the anterior medial left thigh in an area of redness and swelling LIMITATIONS: None. FINDINGS: Patient has an area of redness and swelling in the anterior medial left thigh. This is ar ea was examined with ultrasound. There is a 4 cm long segmental thrombosis in a superficial subcutaneous branch of the saphenous vein with surrounding subcutaneous edema. No well circumscribed abscess is identified. Comparison imaging of the right thigh was performed the corresponding area, and was unremarkable. This exam does not constitute a detailed venous Doppler study IMPRESSION: 4 cm long segmental thrombosis of a superficial branch of the left saphenous vein over t he medial left thigh. Surrounding cellulitis is present without discrete abscess. This exam is not a dedicated lower extremity venous Doppler study TECHNICAL DOCUMENTATION: JOB ID: [id number] [employer]- All Rights Reserved Reading location - IP/workstation name: [email or web address]
[2019-03-23 15:13] VITALS: BP 135/88
--- NOTE | 2019-03-23 15:17 | RADIOLOGY REPORT (SQ) ---
EXAM DESCRIPTION: VENOUS BILATERAL LOWER COMPLETED DATE/TIME: 03/23/2019 3:01 pm REASON FOR STUDY: PAIN SWELLING COMPARISON: None. TECHNIQUE: Dynamic and static gillette scale and color images acquired of both lower extremity venous sy stems. Selected spectral images acquired with additional compression and augmentation maneuvers. Imag es stored on PACS. LIMITATIONS: None. FINDINGS: RIGHT LEG COMMON FEMORAL AND FEMORAL: Normal phasicity, compression and augmentation. No visualized echogenic m aterial on gillette scale. No defects on color images. POPLITEAL: Normal compression and augmentation. No visualized echogenic material on gillette scale. No de fects on color images. CALF VESSELS: Normal compression and augmentation. No visualized echogenic material on gillette scale. No defects on color image. GSV AND SSV: Normal compression. No visualized echogenic material on gillette scale. No defects on color images. ANY DEEP VENOUS INSUFFICIENCY: Not evaluated. ANY EVIDENCE OF POPLITEAL CYST: No. OTHER: No other significant finding. LEFT LEG COMMON FEMORAL AND FEMORAL: Normal phasicity, compression and augmentation. No visualized echogenic m aterial on gillette scale. No defects on color images. POPLITEAL: Normal compression and augmentation. No visualized echogenic material on gillette scale. No de fects on color images. CALF VESSELS: Normal compression and augmentation. No visualized echogenic material on gillette scale. No defects on color images. GSV: Short segment of non visualization of the greater saphenous vein in the left medial thigh. Thi s is in the area of focal cellulitis seen earlier today on soft tissue ultrasound. Ultrasound earlie r today demonstrated segmental superficial thrombophlebitis in the greater saphenous vein measuring 4 cm length. SSV: Normal compression. No visualized echogenic material on gillette scale. No defects on color images. ANY DEEP VENOUS INSUFFICIENCY: Not evaluated. ANY EVIDENCE POPLITEAL CYST: No. OTHER: No other significant finding. IMPRESSION: NO EVIDENCE DVT OR SVT IN THE RIGHT LEG. NO EVIDENCE OF DEEP VENOUS THROMBOSIS IN THE LEFT LEG. SHORT SEGMENT OF SUPERFICIAL VENOUS THROMBOPHLEBITIS IN THE LEFT GREATER SAPHENOUS VEIN IN THE THIGH. COMMENT: Pertinent findings on the imaging study reported as a CRITICAL RESULT to ROSANGELA ORTEGA at15: 10 on 03/23/2019. Category of Critical Result: LEFT THIGH SUPERFICIAL THROMBOPHLEBITIS IN THE GREATER SAPHENOUS VEIN TECHNICAL DOCUMENTATION: JOB ID: [id number]- All Rights Reserved Reading location - IP/workstation name: [email or web address]
--- NOTE | 2019-06-05 15:48 | ER Document Report ---
Entered by SUZANNE HIDALGO SCRIBE 03/23/19 1141 Acting as scribe for:VALERIA BARNHART MD ED General - General Chief Complaint: Abscess Stated Complaint: POSSIBLE ABCESS Time Seen by Provider: 03/23/19 10:19 Mode of Arrival: Ambulatory Information source: Patient Notes: Patient is a 43-year-old female with hypertension, diabetes presents to the emergency department complaining of a possible insect bite onset 2 days ago. Patient states she noticed a small bump on her left medial thigh 2 days ago after sitting on her porch. She states the bump has significantly enlarged and become more painful since onset. She denies any drainage. Patient is currently prescribed Metformin. TRAVEL OUTSIDE OF THE [place] IN LAST 30 DAYS: No - Related Data Allergies/Adverse Reactions: No Known Allergies Allergy (Verified 02/05/19 09:03) Past Medical History - General Information source: Patient - Social History Smoking Status: Current Every Day Smoker Cigarette use (# per day): No Drug Abuse: Marijuana Family History: Reviewed & Not Pertinent Patient has suicidal ideation: No Patient has homicidal ideation: No - Past Medical History Cardiac Medical History: Reports: Hx Hypercholesterolemia, Hx Hypertension Endocrine Medical History: Reports: Hx Diabetes Mellitus Type 2 Past Surgical History: Reports: Hx Section, Hx Cholecystectomy, Hx Tubal Ligation - Immunizations Immunizations up to date: Yes Review of Systems - Review of Systems Constitutional: No symptoms reported EENT: No symptoms reported Cardiovascular: No symptoms reported Respiratory: No symptoms reported Gastrointestinal: No symptoms reported Genitourinary: No symptoms reported Female Genitourinary: No symptoms reported Musculoskeletal: See HPI Skin: See HPI Hematologic/Lymphatic: No symptoms reported Neurological/Psychological: No symptoms reported -: Yes All other systems reviewed and negative Physical Exam - Vital signs Vitals: Temp Pulse Resp BP Pulse Ox 99.2 F 79 20 152/98 H 98 03/23/19 10:13 03/23/19 10:13 03/23/19 10:13 03/23/19 10:13 03/23/19 10:13 - Notes Notes: GENERAL: Alert, interacts well. No acute distress. HEAD: Normocephalic, atraumatic. EYES: Pupils equal, round, and reactive to light. Extraocular movements intact. ENT: Oral mucosa moist, tongue midline. NECK: Full range of motion. Supple. Trachea midline. LUNGS: Clear to auscultation bilaterally, no wheezes, rales, or rhonchi. No respiratory distress. HEART: Regular rate and rhythm. No murmurs, gallops, or rubs. ABDOMEN: Soft, obese, non-tender. Non-distended. Bowel sounds present in all 4 quadrants. No guarding, rigidity, or rebound. EXTREMITIES: Moves all 4 extremities spontaneously. There is a large area of erythema and induatron to the left medial thigh, exquisitely tender to palpate. There is no pointing, do not palpate soft areas that would suggest an abscess cavity. Trace edema. NEUROLOGICAL: Alert and oriented x3. Normal speech. PSYCH: Normal affect, normal mood. SKIN: Warm, dry, normal turgor. No rashes or lesions noted. Course - Vital Signs Vital signs: Temp Pulse Resp BP Pulse Ox 99.2 F 79 20 152/98 H 98 03/23/19 10:13 03/23/19 10:13 03/23/19 10:13 03/23/19 10:13 03/23/19 10:13 - Laboratory Result Diagrams: 03/23/19 10:30 03/23/19 10:30 Laboratory results interpreted by me: 03/23/19 03/23/19 10:30 10:30 MCV 71 L MCH 22.9 L RDW 14.8 H Glucose 143 H - Diagnostic Test Radiology reviewed: Image reviewed, Reports reviewed - Ultrasound of the involved area on the left thigh does not show a drainable fluid collection. It does show swelling consistent with cellulitis. There is a suspicion for a thrombosed superficial saphenous vein so bilateral venous Dopplers were done. Venous Dopplers did not show evidence of DVT. Discharge - Discharge Clinical Impression: Cellulitis Qualifiers: Site of cellulitis: extremity Site of cellulitis of extremity: lower extremity Laterality: left Qualified Code(s): L03.116 - Cellulitis of left lower limb Condition: Stable Disposition: HOME, SELF-CARE Additional Instructions: Abscess/Cellulitis You are developing an abscess (boil). This a pus-forming infection, usually due to staph. Some boils may be left to drain on their own, but most require lancing. From the time the tender lump first appears, it may be three or four days before the abscess is ready to kathleen. Local heat and rest help at this stage of treatment. An antibiotic may prevent spread of the infection. Once the abscess is opened, packing may be placed into it. This is done so pus is not sealed inside by premature closure of the cavity. The packing will be removed at your follow-up visit or you may be advised to remove it yourself at home. Sometimes this packing must be replaced a few times during healing. The wound will heal with surprisingly little scar. Depending on the size and location of an abscess, healing can take one to four weeks. You may shower and wash the area around the incision site two or three times a day. Antibiotics may be prescribed, but are usually not necessary after an abscess has been drained. If you develop fever, chilling, worsening pain, or increasing swelling in the area, call the doctor or return immediately. At this time the infection in the skin tissues is called cellulitis. It appears to be trying to progress toward the formation of an abscess. Take the medications as prescribed. Use moist heat or warm soaks to the painful area several times a day. The antibiotics and warm soaks may calm the area down and avoid the development of an abscess. Follow-up with your primary care provider for recheck next week. Return to the emergency room if the swelling increases and the area begins to get more hardened, or starts to point suggesting that an abscess cavity has formed. RETURN TO THE EMERGENCY ROOM IF ANY NEW OR WORSENING SYMPTOMS. Prescriptions: Clindamycin HCl 300 mg PO QID #30 capsule Oxycodone HCl/Acetaminophen [Percocet 5-325 mg Tablet] 1 tab PO ASDIR PRN #12 tablet PRN Reason: Scribe Attestation: 03/23/19 14:49 I personally performed the services described in the documentation, reviewed and edited the documentation which was dictated to the scribe in my presence, and it accurately records my words and actions. I personally performed the services described in the documentation, reviewed and edited the documentation which was dictated to the scribe in my presence, and it accurately records my words and actions.
== END 2019-03-23 15:13 | disposition home or self-care (01) ==
LOC: ER 09:55
DX: L03.116 Cellulitis of left lower limb (principal); E78.00 Pure hypercholesterolemia, unspecified; I10 Essential (primary) hypertension; E11.9 Type 2 diabetes mellitus without complications; Z90.49 Acquired absence of other specified parts of digestive tract; Z98.51 Tubal ligation status
CPT/HCPCS: 99284; 96365; 36415; 84703; 85025; 80053; 93970; 76882; S0077; J2270; J2405

== ENCOUNTER 2019-05-17 12:39 | Emergency (ER) | payer MEDICAID ==
[2019-05-17] MEDS ORDERED: ONDANSETRON 4 MG TAB.RAPDIS PO ONE (13:04)
--- NOTE | 2019-05-17 13:06 | ER Document Report ---
ED Medical Screen (RME) - General Chief Complaint: Abdominal Pain Stated Complaint: ABDOMINAL PAIN TRAVEL OUTSIDE OF THE [place] IN LAST 30 DAYS: No - HPI Notes: 05/17/19 13:04 Patient is a 43-year-old female with a history of hypertension, type 2 diabetes, sickle cell, cholecystectomy, tubal ligation, and who presents complaining of mid to upper abdominal pain that is worse with p.o. intake that is been ongoing for the past 3 weeks. She has had associated nausea and vomiting. She is continuing to have normal bowel movements. She is urinating normally. No vaginal odor, discharge, or bleeding. Patient states that she is also been having right-sided chest tightness/pain with palpitations over the past few weeks as well. Denies FIGUEROA, fever, neck pain, URI, SOB, dysuria, back pain, or rash. I have treated and performed a rapid initial assessment of this patient. A comprehensive ED assessment and evaluation of the patient, analysis of test results and completion of medical decision making process will be conducted by additional ED providers. PHYSICAL EXAMINATION: GENERAL: Well-appearing, well-nourished and in no acute distress. A&Ox4. Answers questions appropriately. LUNGS: Breath sounds clear to auscultation bilaterally and equal. No wheezes rales or rhonchi. HEART: Regular rate and rhythm without murmurs, rubs, gallops. ABDOMEN: Soft, nondistended abdomen. No guarding, no rebound. Normal bowel sounds present. No CVA tenderness bilaterally. + mid/epigastric tenderness (cannot elicit thorough abd exam w/o bed, however). - Related Data Allergies/Adverse Reactions: No Known Allergies Allergy (Verified 05/17/19 12:41) Past Medical History - Past Medical History Cardiac Medical History: Reports: Hx Hypercholesterolemia, Hx Hypertension Endocrine Medical History: Reports: Hx Diabetes Mellitus Type 2 Renal/ Medical History: Denies: Hx Peritoneal Dialysis Past Surgical History: Reports: Hx Section, Hx Cholecystectomy, Hx Tubal Ligation - Immunizations Immunizations up to date: Yes Physical Exam - Vital signs Vitals: Temp Pulse Resp BP Pulse Ox 98.5 F 77 20 146/86 H 97 05/17/19 12:51 05/17/19 12:51 05/17/19 12:51 05/17/19 12:51 05/17/19 12:51 Course - Vital Signs Vital signs: Temp Pulse Resp BP Pulse Ox 98.5 F 77 20 146/86 H 97 05/17/19 12:51 05/17/19 12:51 05/17/19 12:51 05/17/19 12:51 05/17/19 12:51
--- NOTE | 2019-05-17 14:03 | RADIOLOGY REPORT (SQ) ---
EXAM DESCRIPTION: CHEST 2 VIEWS COMPLETED DATE/TIME: 05/17/2019 1:51 pm REASON FOR STUDY: Chest Pain COMPARISON: 09/15/2018 EXAM PARAMETERS: NUMBER OF VIEWS: two views TECHNIQUE: Digital Frontal and Lateral radiographic views of the chest acquired. RADIATION DOSE: NA LIMITATIONS: none FINDINGS: LUNGS AND PLEURA: No opacities, masses or pneumothorax. No pleural effusion. MEDIASTINUM AND HILAR STRUCTURES: No masses or contour abnormalities. HEART AND VASCULAR STRUCTURES: Heart normal size. No evidence for failure. BONES: No acute findings. HARDWARE: None in the chest. OTHER: No other significant finding. IMPRESSION: No acute abnormality of the lungs. TECHNICAL DOCUMENTATION: JOB ID: [id number] [employer]- All Rights Reserved Reading location - IP/workstation name: [email or web address]
[2019-05-17 14:04] LABS: ABSOLUTE BASOPHILS # (AUTO) 0.1 10^3/uL (0.0-0.2); ABSOLUTE EOSINOPHILS # (AUTO) 0.2 10^3/uL (0.0-0.6); ABSOLUTE LYMPHOCYTES (AUTO) 1.9 10^3/uL (0.5-4.7); ABSOLUTE MONOCYTES (AUTO) 0.5 10^3/uL (0.1-1.4); ABSOLUTE NEUT (AUTO) 4.8 10^3/uL (1.7-8.2); ABSOLUTE RETICS # 0.052 10^6/uL (0.028-0.122); BASOPHILS % (AUTO) 0.7 % (0-2); EOSINOPHILS % (AUTO) 2.8 % (0-6); HEMATOCRIT 38.1 % (36.0-47.0); HEMOGLOBIN 12.4 g/dL (12.0-15.5); LYMPHOCYTES % (AUTO) 25.6 % (13-45); MEAN CORPUSCULAR HEMOGLOBIN 22.6 pg (27.0-33.4); MEAN CORPUSCULAR HGB CONC 32.6 g/dL (32.0-36.0); MEAN CORPUSCULAR VOLUME 69 fl (80-97); MONOCYTES % (AUTO) 7.2 % (3-13); PLATELET COUNT 314 10^3/uL (150-450); RED CELL DISTRIBUTION WIDTH 15.5 % (11.5-14.0); RETICULOCYTE COUNT (AUTO) 0.95 % (0.66-2.85); SEGMENTED NEUTROPHILS % (AUTO) 63.7 % (42-78); TOTAL CELLS COUNTED % (AUTO) 100 %; WHITE BLOOD COUNT 7.6 10^3/uL (4.0-10.5)
[2019-05-17 14:22] LABS: ALANINE AMINOTRANSFERASE 16 U/L (9-52); ALBUMIN 3.9 g/dL (3.5-5.0); ALKALINE PHOSPHATASE 73 U/L (38-126); ANION GAP 7 (5-19); ASPARTATE AMINO TRANSFERASE 24 U/L (14-36); BILIRUBIN,DIRECT 0.2 mg/dL (0.0-0.4); BILIRUBIN,TOTAL 0.3 mg/dL (0.2-1.3); BLOOD UREA NITROGEN 10 mg/dL (7-20); CALCIUM 9.4 mg/dL (8.4-10.2); CARBON DIOXIDE 27 mmol/L (22-30); CHLORIDE 106 mmol/L (98-107); GLUCOSE 102 mg/dL (75-110); LIPASE 82.5 U/L (23-300); POTASSIUM 4.2 mmol/L (3.6-5.0); SODIUM 139.7 mmol/L (137-145); TOTAL PROTEIN 6.9 g/dL (6.3-8.2)
[2019-05-17 15:19] LABS: APPEARANCE,URINE SLIGHTLY-CLOUDY; BILIRUBIN,URINE NEGATIVE (NEGATIVE); COLOR,URINE YELLOW; GLUCOSE, URINE NEGATIVE (NEGATIVE); KETONES,URINE NEGATIVE (NEGATIVE); LEUKOCYTE ESTERASE,URINE SMALL (NEGATIVE); NITRITE,URINE NEGATIVE (NEGATIVE); PROTEIN,URINE NEGATIVE (NEGATIVE); URINE SPECIFIC GRAVITY 1.016; UROBILINOGEN,URINE NEGATIVE mg/dL (<2.0)
[2019-05-17] MEDS ORDERED: MORPHINE SULFATE 10 MG/ML INJ IV ONE (15:50)
[2019-05-17] MEDS ORDERED: METOCLOPRAMIDE HCL ORAL SOLN 10 MG/10 ML UDCUP PO ONE (15:51)
[2019-05-17] MEDS ORDERED: LIDOCAINE 2% VISCOUS SOLN 20 ML UDCUP PO ONE (15:51)
[2019-05-17] MEDS ORDERED: MAG HYDROX/AL HYDROX/SIMETH SUSP 30 ML UDCUP PO ONE (15:51)
--- NOTE | 2019-05-17 15:52 | ER Document Report ---
ED General - General Chief Complaint: Abdominal Pain Stated Complaint: ABDOMINAL PAIN Time Seen by Provider: 05/17/19 13:07 Mode of Arrival: Ambulatory Information source: Patient, [facility] Records Notes: Patient is a 43-year-old female with a history of hypertension, type 2 diabetes, sickle cell, cholecystectomy, tubal ligation, and who presents complaining of mid to upper abdominal pain that is worse with p.o. intake that is been ongoing for the past 3 weeks. She has had associated nausea and vomiting. She is continuing to have normal bowel movements. She is urinating normally. No vaginal odor, discharge, or bleeding. Patient states that she is also been having right-sided chest tightness/pain with palpitations over the past few weeks as well. Denies FIGUEROA, fever, neck pain, URI, SOB, dysuria, back pain, or rash. TRAVEL OUTSIDE OF THE [place] IN LAST 30 DAYS: No - HPI Onset: Other Onset/Duration: Gradual, Intermittent, Persistent, Worse Quality of pain: Sharp Severity: Moderate Pain Level: 2 Associated symptoms: Chest pain, Diarrhea, Nausea, Vomiting. denies: Nonproductive cough, Productive cough, Fever, Headache, Leg swelling, Shortness of breath Exacerbated by: Food Relieved by: Remaining still Similar symptoms previously: Yes Recently seen / treated by doctor: No - Related Data Allergies/Adverse Reactions: No Known Allergies Allergy (Verified 05/17/19 12:41) Past Medical History - General Information source: Patient - Social History Smoking Status: Current Some Day Smoker Cigarette use (# per day): Yes - 1-2 Smoking Education Provided: Yes - Smoking cessation counseling was provided for 4 minutes at the bedside Frequency of alcohol use: None Drug Abuse: None Lives with: Family Family History: Reviewed & Not Pertinent Patient has suicidal ideation: No Patient has homicidal ideation: No - Past Medical History Cardiac Medical History: Reports: Hx Hypercholesterolemia, Hx Hypertension Endocrine Medical History: Reports: Hx Diabetes Mellitus Type 2 Renal/ Medical History: Denies: Hx Peritoneal Dialysis Past Surgical History: Reports: Hx Section, Hx Cholecystectomy, Hx Tubal Ligation - Immunizations Immunizations up to date: Yes Review of Systems - Review of Systems Notes: REVIEW OF SYSTEMS: CONSTITUTIONAL : Denies fever, chills, or sweats. Denies recent illness. Denies weight loss, recent hospitalizations. EENT: Denies visual changes, eye pain. Denies sore throat, oral lesions, difficulty swallowing. CARDIOVASCULAR: Denies chest pain. Denies palpitations. Denies lower extremity edema. RESPIRATORY: Denies cough. Denies shortness of breath, wheezing. GASTROINTESTINAL: Denies abdominal distention. + nausea, vomiting, or diarrhea. Denies blood in vomitus, stools, or per rectum. Denies black, tarry stools. Denies constipation. GENITOURINARY: Denies difficulty urinating, painful urination, frequency, blood in urine, or vaginal discharge. MUSCULOSKELETAL: Denies back or neck pain or stiffness. Denies joint pain or swelling. SKIN: Denies rash, lesions or sores. HEMATOLOGIC : Denies easy bruising or bleeding. LYMPHATIC: Denies swollen glands. NEUROLOGICAL: Denies confusion or altered mental status. Denies loss of consciousness. Denies dizziness or lightheadedness. Denies headache. Denies weakness or paralysis. Denies problems difficulty with ambulation, slurred speech. Denies sensory loss, numbness, or tingling. Denies seizures. PSYCHIATRIC: Denies anxiety or stress. Denies depression, suicidal ideation, or homicidal ideation. Denies visual or auditory hallucinations. Physical Exam - Vital signs Vitals: Temp Pulse Resp BP Pulse Ox 98.5 F 77 20 146/86 H 97 05/17/19 12:51 05/17/19 12:51 05/17/19 12:51 05/17/19 12:51 05/17/19 12:51 - Notes Notes: PHYSICAL EXAMINATION: GENERAL: Well-appearing, well-nourished and in no acute distress. HEAD: Atraumatic, normocephalic. EYES: Pupils equal round and reactive to light, extraocular movements intact, conjunctiva are normal. ENT: Nares patent, oropharynx clear without exudates. Moist mucous membranes. NECK: Normal range of motion, supple without lymphadenopathy LUNGS: Breath sounds clear to auscultation bilaterally and equal. No wheezes rales or rhonchi. HEART: Regular rate and rhythm without murmurs ABDOMEN: Mild generalized tenderness with palpation. No guarding, no rebound. No masses appreciated. Female : deferred Musculoskeletal: Normal range of motion, no pitting or edema. No cyanosis. NEUROLOGICAL: Cranial nerves grossly intact. Normal speech, normal gait. Normal sensory, motor exams PSYCH: Normal mood, normal affect. SKIN: Warm, Dry, normal turgor, no rashes or lesions noted. Course - Re-evaluation Re-evalutation: 05/18/19 15:35 Laboratory 05/17/19 05/17/19 05/17/19 13:25 13:25 13:35 WBC 7.6 RBC 5.50 H Hgb 12.4 Hct 38.1 MCV 69 L MCH 22.6 L MCHC 32.6 RDW 15.5 H Plt Count 314 Seg Neutrophils % 63.7 Lymphocytes % 25.6 Monocytes % 7.2 Eosinophils % 2.8 Basophils % 0.7 Absolute Neutrophils 4.8 Absolute Lymphocytes 1.9 Absolute Monocytes 0.5 Absolute Eosinophils 0.2 Absolute Basophils 0.1 Retic Count (auto) 0.95 Absolute Retic 0.052 Sodium Potassium Chloride Carbon Dioxide Anion Gap BUN Creatinine Est GFR ( Amer) Est GFR (Non-Af Amer) Glucose Calcium Total Bilirubin Direct Bilirubin Neonat Total Bilirubin Neonat Direct Bilirubin Neonat Indirect Bili AST ALT Alkaline Phosphatase Troponin I Total Protein Albumin Lipase Urine Color YELLOW Urine Appearance SLIGHTLY-CLOUDY Urine pH 5.0 Ur Specific [place] 1.016 Urine Protein NEGATIVE Urine Glucose (UA) NEGATIVE Urine Ketones NEGATIVE Urine Blood NEGATIVE Urine Nitrite NEGATIVE Urine Bilirubin NEGATIVE Urine Urobilinogen NEGATIVE Ur Leukocyte Esterase SMALL H Urine WBC (Auto) 2 Urine RBC (Auto) 1 Urine Bacteria (Auto) TRACE Squamous Epi Cells Auto 7 Urine Mucus (Auto) RARE Urine Ascorbic Acid NEGATIVE Urine HCG, Qual NEGATIVE 05/17/19 05/17/19 13:35 13:35 WBC RBC Hgb Hct MCV MCH MCHC RDW Plt Count Seg Neutrophils % Lymphocytes % Monocytes % Eosinophils % Basophils % Absolute Neutrophils Absolute Lymphocytes Absolute Monocytes Absolute Eosinophils Absolute Basophils Retic Count (auto) Absolute Retic Sodium 139.7 Potassium 4.2 Chloride 106 Carbon Dioxide 27 Anion Gap 7 BUN 10 Creatinine 0.83 Est GFR ( Amer) > 60 Est GFR (Non-Af Amer) > 60 Glucose 102 Calcium 9.4 Total Bilirubin 0.3 Direct Bilirubin 0.2 Neonat Total Bilirubin Not Reportable Neonat Direct Bilirubin Not Reportable Neonat Indirect Bili Not Reportable AST 24 ALT 16 Alkaline Phosphatase 73 Troponin I < 0.012 Total Protein 6.9 Albumin 3.9 Lipase 82.5 Urine Color Urine Appearance Urine pH Ur Specific [place] Urine Protein Urine Glucose (UA) Urine Ketones Urine Blood Urine Nitrite Urine Bilirubin Urine Urobilinogen Ur Leukocyte Esterase Urine WBC (Auto) Urine RBC (Auto) Urine Bacteria (Auto) Squamous Epi Cells Auto Urine Mucus (Auto) Urine Ascorbic Acid Urine HCG, Qual Chest X-Ray 05/17/19 00:00 IMPRESSION: No acute abnormality of the lungs. Abdomen/Pelvis CT 05/17/19 15:50 IMPRESSION: NO ACUTE FINDINGS IN THE ABDOMEN OR PELVIS ON CT SCAN WITH IV CONTRAST. Temp Pulse Resp BP Pulse Ox 98.0 F 75 20 141/94 H 99 05/17/19 18:38 05/17/19 19:04 05/17/19 18:38 05/17/19 19:04 05/17/19 18:38 05/18/19 20:48 Patient is a 43-year-old female with a history of hypertension, type 2 diabetes, sickle cell, cholecystectomy, tubal ligation, and who presents complaining of mid to upper abdominal pain that is worse with p.o. intake that is been ongoing for the past 3 weeks. She has had associated nausea and vomiting. She is continuing to have normal bowel movements. She is urinating normally. No vaginal odor, discharge, or bleeding. Patient states that she is also been having right-sided chest tightness/pain with palpitations over the past few weeks as well. Denies FIGUEROA, fever, neck pain, URI, SOB, dysuria, back pain, or rash. Vital signs reviewed and within normal limits. Patient does not appear toxic or dehydrated. She is in no acute distress. CBC is without leukocytosis or anemia. CMP is without electrolyte abnormalities. Cardiac enzymes within normal limits. Patient does report improvement of her pain after receiving IV fluids, morphine, Zofran. Patient was evaluated and treated as appropriate for the patient's presenting symptoms and complaint, with consideration of any critical or life threatening conditions that may be associated with their obtained history and exam as noted above. All results were discussed with patient . Patient provided the opportunity to ask questions, and express concerns. Patient was educated on treatments based on their presumed diagnosis as noted above. At this time we will discharge the patient with return precautions and follow-up recommendations. Verbal discharge instructions given a the bedside. Medication warnings reviewed. Patient is in agreement with this plan and has verbalized understanding of return precautions. After careful consideration I feel that that patient can be safely discharged from the emergency department, they were advised to followup with a primary care physician in 2-3 days. Dictation on this chart was performed using voice recognition software and may result in unintended grammatical, spelling, syntax or errors. - Vital Signs Vital signs: Temp Pulse Resp BP Pulse Ox 98.0 F 75 20 141/94 H 99 05/17/19 18:38 05/17/19 19:04 05/17/19 18:38 05/17/19 19:04 05/17/19 18:38 - Laboratory Result Diagrams: 05/17/19 13:35 05/17/19 13:35 Laboratory results interpreted by me: 05/17/19 05/17/19 13:25 13:35 RBC 5.50 H MCV 69 L MCH 22.6 L RDW 15.5 H Ur Leukocyte Esterase SMALL H - Diagnostic Test Radiology reviewed: Image reviewed, Reports reviewed Discharge - Discharge Clinical Impression: History of sickle cell anemia Abdominal pain Qualifiers: Abdominal location: unspecified location Qualified Code(s): R10.9 - Unspecified abdominal pain Nausea & vomiting Qualifiers: Vomiting type: unspecified Vomiting Intractability: non-intractable Qualified Code(s): R11.2 - Nausea with vomiting, unspecified Condition: Good Disposition: HOME, SELF-CARE Instructions: Abdominal Pain ([facility]), Viral Syndrome ([facility]), Vomiting ([facility]) Additional Instructions: Follow up with your [id number] hours for further care or return to the ED IMMEDIATELY if symptoms worsen or you have any concerns. If you cannot afford to follow up with your primary care physician a list of low cost clinics have been provided at the end of your discharge papers as well. Most prescribed medications have multiple side effects. The safest thing to do is when filling your prescription speak to your pharmacist regarding possible interactions with your normal home medications and over the counter medications such as Ibuprofen, Tylenol, Benadryl. If you experience any symptoms that cause you discomfort or concern you should discontinue the medication immediately and return to the emergency room or call your primary care physician. Prescriptions: Hydrocodone/Acetaminophen [[place] 5-325 mg Tablet] 1 tab PO Q6H #12 tablet Ondansetron [Zofran Odt 4 mg Tablet] 1 - 2 tab PO Q4H PRN #15 tab.rapdis PRN Reason: For Nausea/Vomiting Forms: Elevated Blood Pressure
--- NOTE | 2019-05-17 17:17 | RADIOLOGY REPORT (SQ) ---
EXAM DESCRIPTION: CT ABD/PELVIS WITH IV ONLY COMPLETED DATE/TIME: 05/17/2019 5:07 pm REASON FOR STUDY: r sided abd pain COMPARISON: None. TECHNIQUE: CT scan of the abdomen and pelvis performed using helical scanning technique with dynamic intravenous contrast injection. No oral contrast. Images reviewed with lung, soft tissue, and bone w indows. Reconstructed coronal and sagittal MPR images reviewed. Delayed images for evaluation of the urinary system also acquired. All images stored on PACS. All CT scanners at this facility use dose modulation, iterative reconstruction, and/or weight based d osing when appropriate to reduce radiation dose to as low as reasonably achievable (ALARA). [facility]: Dose Right [facility]: CareDose [facility]: Dose Right [facility]: Teradose 4D [facility]: [employer] CONTRAST TYPE AND DOSE: contrast/concentration: Isovue 350.00 mg/ml; Total Contrast Delivered: 100.0 ml; Total Saline Delivered: 72.0 ml RENAL FUNCTION: GFR > 60. RADIATION DOSE: CT Rad equipment meets quality standard of care and radiation dose reduction techniq ues were employed. CTDIvol: 19.8 - 20.3 mGy. DLP: 2017 mGy-cm.. LIMITATIONS: None. FINDINGS: LOWER CHEST: No significant findings. LIVER: Normal size. No enhancing masses. No dilated ducts. SPLEEN: Normal size. No focal lesions. PANCREAS: No masses identified. No significant calcifications. No adjacent inflammation or peripancre atic fluid collections. Pancreatic duct not dilated. GALLBLADDER: Surgically absent. ADRENAL GLANDS: No significant masses. RIGHT KIDNEY AND URETER: No cysts identified. No solid masses identified. No calcified stones. No hyd ronephrosis or hydroureter. LEFT KIDNEY AND URETER: No cysts identified. No solid masses identified. No calcified stones. No hydr onephrosis or hydroureter. AORTA AND VESSELS: No aneurysm. No dissection. Renal arteries, SMA, celiac without significant stenos is. RETROPERITONEUM: No bulky retroperitoneal adenopathy. BOWEL AND PERITONEAL CAVITY: No obstruction or inflammatory changes. No free fluid. APPENDIX: Normal. PELVIS: No mass. No free fluid. Unremarkable bladder. ABDOMINAL WALL: No masses. No hernias. BONES: No acute findings. Left sacroiliitis. OTHER: No other significant finding. IMPRESSION: NO ACUTE FINDINGS IN THE ABDOMEN OR PELVIS ON CT SCAN WITH IV CONTRAST. TECHNICAL DOCUMENTATION: JOB ID: [id number] Quality ID # [id number]: Final reports with documentation of one or more dose reduction techniques (e.g., Au tomated exposure control, adjustment of the mA and/or kV according to patient size, use of iterative reconstruction technique) 2010 [employer]- All Rights Reserved Reading location - IP/workstation name: [email or web address]
[2019-05-17] MEDS ORDERED: DIPHENHYDRAMINE HCL 50 MG/ML VIAL IV ONE (17:51)
[2019-05-17] MEDS ORDERED: HYDROMORPHONE HCL INJ/PF 2 MG/ML AMPULE IV ONE (17:51)
[2019-05-17] MEDS ORDERED: ONDANSETRON HCL INJ/PF 4 MG/2 ML SDV IV ONE (17:51)
[2019-05-17] MEDS ORDERED: HYDROCODONE/ACETAMINOPHEN 5-325 MG (6 TAB/ER DISP) PO PRN (17:59)
[2019-05-17] MEDS ORDERED: ONDANSETRON ODT 4 MG TAB (6 TAB/ER DISP) PO PRN (17:59)
[2019-05-17 19:11] VITALS: BP 141/94
--- NOTE | 2019-05-20 09:43 | EKG REPORT ---
SEVERITY:- ABNORMAL ECG - SINUS RHYTHM PROBABLE LEFT ATRIAL ABNORMALITY BORDERLINE T WAVE ABNORMALITIES ANTERIOR LEADS, NEW, COMPARED TO 09/15/18 EKG. : Confirmed by: Carlos aMy MD 20-May-2019 09:42:33
== END 2019-05-17 19:06 | disposition home or self-care (01) ==
LOC: ER 12:39
DX: D57.1 Sickle-cell disease without crisis (principal); R10.9 Unspecified abdominal pain; R11.2 Nausea with vomiting, unspecified; R10.10 Upper abdominal pain, unspecified; R63.0 Anorexia; R07.9 Chest pain, unspecified; R00.2 Palpitations; R19.7 Diarrhea, unspecified; I10 Essential (primary) hypertension; E11.9 Type 2 diabetes mellitus without complications
CPT/HCPCS: 93005; 99284; 96374; 96375; 36415; 83690; 85025; 81025; 85045; 80053; 81001; 84484; 71046; 74177; 93010; J1200; J3490 ×3; J2270; J1170; J2405

== ENCOUNTER 2019-05-28 16:19 | Emergency (ER) | payer MEDICAID ==
[2019-05-28] MEDS ORDERED: ACETAMINOPHEN 325 MG TABLET PO ONE (16:51)
--- NOTE | 2019-05-28 16:52 | ER Document Report ---
ED Respiratory Problem - General Chief Complaint: Cough Stated Complaint: CONGESTION Time Seen by Provider: 05/28/19 16:51 Mode of Arrival: Ambulatory Information source: Patient Notes: 43-year-old female presents to ED for complaint of cough congestion runny nose for the last 2 weeks. She states she has had intermittent fevers up to as much is 100.2. She states she was seen in the emergency room 2 weeks ago for chronic pain for her sickle cell pain and she had a productive cough then but this is worse. Patient is alert oriented respirations regular and unlabored speaking in full sentences. She does have a runny nose swollen nasal mucosa and a lot of congestion. Her lung sounds are clear I will send her for chest x-ray give her some Tylenol until I get the chest x-ray. TRAVEL OUTSIDE OF THE [place] IN LAST 30 DAYS: No - HPI Patient complains to provider of: Cough Onset: Other - 2 weeks Initiating Event: URI Quality of pain: Other - Sharp pain when coughing Severity: Moderate Pain Level: 3 Context: Other - Stop smoking 2 weeks ago Cough: Productive Sputum amount: Small Sputum color: Green Sputum consistency: Thick Associated symptoms: Chills, Congestion, Cough, Earache, Fever, PND, Runny nose, Sinus pain/pressure Similar symptoms previously: Yes Recently seen / treated by doctor: Yes - Related Data Allergies/Adverse Reactions: No Known Allergies Allergy (Verified 05/28/19 16:21) Past Medical History - General Information source: Patient - Social History Smoking Status: Former Smoker Frequency of alcohol use: None Drug Abuse: None Family History: Reviewed & Not Pertinent Patient has suicidal ideation: No Patient has homicidal ideation: No - Medical History Medical History: Other - Sickle cell - Past Medical History Cardiac Medical History: Reports: Hx Hypercholesterolemia, Hx Hypertension Pulmonary Medical History: Reports: Hx Bronchitis EENT Medical History: Reports: None Neurological Medical History: Reports: None Endocrine Medical History: Reports: Hx Diabetes Mellitus Type 2 Renal/ Medical History: Reports: None Malignancy Medical History: Reports: None GI Medical History: Reports: None Musculoskeletal Medical History: Reports None Skin Medical History: Reports None Psychiatric Medical History: Reports: None Traumatic Medical History: Reports: None Infectious Medical History: Reports: None Past Surgical History: Reports: Hx Section, Hx Cholecystectomy, Hx Tubal Ligation - Immunizations Immunizations up to date: Yes Review of Systems - Review of Systems Constitutional: Chills, Fever, Recent illness EENT: Ear pain, Nose congestion, Nose discharge, Sinus pressure, Sinus discharge Cardiovascular: No symptoms reported Respiratory: Cough, Short of breath, Sputum Gastrointestinal: No symptoms reported Genitourinary: No symptoms reported Female Genitourinary: No symptoms reported Musculoskeletal: No symptoms reported Skin: No symptoms reported Hematologic/Lymphatic: No symptoms reported Neurological/Psychological: No symptoms reported Physical Exam - Vital signs Vitals: Temp Pulse Resp BP Pulse Ox 97.7 F 99 12 141/85 H 95 05/28/19 16:26 05/28/19 16:26 05/28/19 16:26 05/28/19 16:26 05/28/19 16:26 Interpretation: Normal - General General appearance: Appears well, Alert - HEENT Head: Normocephalic, Atraumatic Eyes: Normal Pupils: PERRL Ears: Normal External canal: Normal Tympanic membrane: Normal Sinus: Tenderness Nasal: Purulent discharge, Clear rhinorrhea Pharynx: Post nasal drainage. No: Erythema, Exudate, Peritonsillar abscess Neck: Normal - Respiratory Respiratory status: No respiratory distress Chest status: Nontender Breath sounds: Normal, Nonproductive cough - No sputum when she coughed during assessment. No: Rales, Rhonchi, Stridor, Wheezing Chest palpation: Normal - Cardiovascular Rhythm: Regular Heart sounds: Normal auscultation Murmur: No - Abdominal Inspection: Normal Distension: No distension Bowel sounds: Normal Tenderness: Nontender Organomegaly: No organomegaly - Back Back: Normal, Nontender - Extremities General upper extremity: Normal inspection, Nontender, Normal color, Normal ROM, Normal temperature General lower extremity: Normal inspection, Nontender, Normal color, Normal ROM, Normal temperature, Normal weight bearing. No: Simón's sign - Neurological Neuro grossly intact: Yes Cognition: Normal Orientation: AAOx4 Jose Coma Scale Eye Opening: Spontaneous [place] Coma Scale Verbal: Oriented [place] Coma Scale Motor: Obeys Commands [place] Coma Scale Total: 15 Speech: Normal Motor strength normal: LUE, RUE, LLE, RLE Sensory: Normal - Psychological Associated symptoms: Normal affect, Normal mood - Skin Skin Temperature: Warm Skin Moisture: Dry Skin Color: Normal Course - Re-evaluation Re-evalutation: 05/28/19 18:06 After performing a Medical Screening Examination, I estimate there is LOW risk for ACUTE CORONARY SYNDROME, RESPIRATORY FAILURE, SEPSIS OR MENINGITIS, thus I consider the discharge disposition reasonable. I have reevaluated this patient multiple times and no significant life threatening changes are noted. The p atient and I have discussed the diagnosis and risks, and we agree with discharging home with close follow-up. We also discussed returning to the Emergency Department immediately if new or worsening symptoms occur. We have discussed the symptoms which are most concerning (e.g., changing or worsening pain, trouble swallowing or breathing, neck stiffness, fever) that necessitate immediate return. - Vital Signs Vital signs: Temp Pulse Resp BP Pulse Ox 98.6 F 77 18 137/90 H 97 05/28/19 18:12 05/28/19 18:12 05/28/19 18:12 05/28/19 18:12 05/28/19 18:12 - Diagnostic Test Radiology reviewed: Image reviewed, Reports reviewed Discharge - Discharge Clinical Impression: URI (upper respiratory infection) Qualifiers: URI type: unspecified viral URI Qualified Code(s): J06.9 - Acute upper respiratory infection, unspecified Condition: Stable Disposition: HOME, SELF-CARE Instructions: Family Physicians / Practices Additional Instructions: UPPER RESPIRATORY ILLNESS: You have a viral infection of the respiratory passages -- a "cold." This common infection causes nasal congestion, drainage, and often sore throat and cough. It is highly contagious. The disease usually lasts about 10 to 14 days. There is no "cure" for the viral infection -- it must run its course. If there is a complication, such as bacterial infection in the nose, sinuses, middle ear, or bronchial tubes, antibiotics may be required. The antibiotics won't affect the virus. Drink plenty of fluids. A humidifier may help. An expectorant medication or decongestant may make you more comfortable. Use acetaminophen or ibuprofen for fever or aches. See the doctor if fever persists over two days, if there is any significant worsening of your symptoms, or if you simply fail to improve as expected. COUGH-SUPPRESSANT & EXPECTORANT MEDICATION: You are to use a cough medication as needed for relief of symptoms. This medicine is a combination of an expectorant (to make the mucous thinner and more easily "coughed up") and a cough suppressant (to reduce the frequency of coughi ng). The cough-suppressant medicine is related to narcotics. You may experience mild nausea and sleepiness. Some patients who are very sensitive to narcotics may have stomach pain from this medicine. Taking the medicine with food reduces these side effects. Do not drive or work with machinery until you know how this medicine affects you. The expectorant should have no side effects. Iodine-containing expectorants (such as organidin) should not be taken by persons with active thyroid disease unless approved by your doctor. Call the doctor if you develop shortness of breath, hives, rash, itching, lightheadedness, or severe nausea and vomiting. USE OF ACETAMINOPHEN (Tylenol): Acetaminophen may be taken for pain relief or fever control. It's much safer than aspirin, offering a wider range of "safe" dosages. It is safe during . Some brand names are Tylenol, Panadol, Datril, Anacin 3, Tempra, and Liquiprin. Acetaminophen can be repeated every four hours. The following are maximum recommended dosages: >89 pounds or adults 650 mg to 900 mg Acetaminophen can be repeated every four hours. Maximum dose not to exceed 4000 mg a day. Due to your history of high blood pressure you can take [id number] cough and cold medications but you can use Coricidin HBP which is also [id number] this is made especially for people with high blood pressure. I have also given you some cough medicine called Mariana Armijo which should help to decrease the cough. You could also use salt and soda solution to help to remove the postnasal drip from the back your throat that is making your cough. Your chest x-ray is negative no signs or symptoms of any pneumonia. This is a viral infection. Salt and soda solution 1 quart of water 1 tablespoon of salt 1 teaspoon of baking soda Mixed 3 ingredients together and boil for 1 minute Placed in a covered quart jar Use 1/2 ounce of cold solution to gargle 3 times a day FOLLOW-UP CARE: If you have been referred to a physician for follow-up care, call the physicians office for an appointment as you were instructed or within the next two days. If you experience worsening or a significant change in your symptoms, notify the physician immediately or return to the Emergency Department at any time for re-evaluation. I have given you a written report of the x-ray for you to take to your primary doctor. Please call your primary doctor today or tomorrow to schedule a follow- up visit. If you do not have a primary care I did give you a list of primary care doctors. Forms: Elevated Blood Pressure
--- NOTE | 2019-05-28 17:23 | RADIOLOGY REPORT (SQ) ---
EXAM DESCRIPTION: CHEST 2 VIEWS COMPLETED DATE/TIME: 05/28/2019 5:07 pm REASON FOR STUDY: cough congestion COMPARISON: 05/17/2019 EXAM PARAMETERS: NUMBER OF VIEWS: two views TECHNIQUE: Digital Frontal and Lateral radiographic views of the chest acquired. RADIATION DOSE: NA LIMITATIONS: none FINDINGS: LUNGS AND PLEURA: No opacities, masses or pneumothorax. No pleural effusion. MEDIASTINUM AND HILAR STRUCTURES: No masses or contour abnormalities. HEART AND VASCULAR STRUCTURES: Heart normal size. No evidence for failure. BONES: No acute findings. HARDWARE: None in the chest. OTHER: No other significant finding. IMPRESSION: NO ACUTE RADIOGRAPHIC FINDING IN THE CHEST. TECHNICAL DOCUMENTATION: JOB ID: [id number] [email or web address]- All Rights Reserved Reading location - IP/workstation name: [email or web address]
[2019-05-28 18:14] VITALS: BP 137/90
== END 2019-05-28 18:14 | disposition home or self-care (01) ==
LOC: ER 16:19
DX: J06.9 Acute upper respiratory infection, unspecified (principal); B97.89 Other viral agents as the cause of diseases classified elsewhere; R06.02 Shortness of breath; R05 Cough; R09.81 Nasal congestion; R09.89 Other specified symptoms and signs involving the circulatory and respiratory systems; H92.09 Otalgia, unspecified ear; R50.9 Fever, unspecified; R09.82 Postnasal drip; J34.89 Other specified disorders of nose and nasal sinuses; I10 Essential (primary) hypertension; E11.9 Type 2 diabetes mellitus without complications; Z87.891 Personal history of nicotine dependence
CPT/HCPCS: 99283; 71046; J3490

== ENCOUNTER 2019-06-18 14:04 | Emergency (ER) | payer MEDICAID ==
[2019-06-18] MEDS ORDERED: IPRATROPIUM/ALBUTEROL 0.5-2.5 MG/3 ML AMPUL NEB ONE (15:37)
[2019-06-18] MEDS ORDERED: OXYCODONE-ACETAMINOPHEN 5-325 MG TABLET PO ONE (15:37)
--- NOTE | 2019-06-18 15:43 | ER Document Report ---
HPI - HPI Time Seen by Provider: 06/18/19 15:27 Pain Level: 2 Context: Patient is a 43-year-old female with a history of sickle cell disease, hypertension and diabetes who presents to the emergency department with a chief complaint of fall. Patient states 3 days ago she was walking down her carpeted steps when she slipped causing her to land on her back. Patient states she did slide down the 14 steps. She states that she is unsure if she passed out but reports a loss of consciousness. She states that her cousin who was in the front room heard the fall and immediately came to her side. She states she does remember her cousin being there. Patient denies use of blood thinners. Patient states since the fall she has had mid back pain that is constant and becoming more stiff. Patient denies loss of bowel or bladder. Patient states she has taken ibuprofen without much relief. Patient also reports she was being treated over the past month for upper respiratory infection. She states she was given steroids. Patient states she continues to have some wheezing and cough. Patient states she has not had any x-rays performed. Patient also reports she is 1 month late on her. I would like to be checked for . - REPRODUCTIVE Reproductive: DENIES: : Past Medical History - General Information source: Patient - Social History Smoking Status: Former Smoker Frequency of alcohol use: None Drug Abuse: None Lives with: Family Family History: Reviewed & Not Pertinent - Past Medical History Cardiac Medical History: Reports: Hx Hypercholesterolemia, Hx Hypertension Pulmonary Medical History: Reports: Hx Bronchitis EENT Medical History: Reports: None Neurological Medical History: Reports: None Endocrine Medical History: Reports: Hx Diabetes Mellitus Type 2 Renal/ Medical History: Reports: None. Denies: Hx Peritoneal Dialysis Malignancy Medical History: Reports: None GI Medical History: Reports: None Musculoskeletal Medical History: Reports None Skin Medical History: Reports None Psychiatric Medical History: Reports: None Traumatic Medical History: Reports: None Infectious Medical History: Reports: None Past Surgical History: Reports: Hx Section, Hx Cholecystectomy, Hx Tubal Ligation - Immunizations Immunizations up to date: Yes Vertical Provider Document - CONSTITUTIONAL Agree With Documented VS: Yes Exam Limitations: No Limitations General Appearance: No Apparent Distress - INFECTION CONTROL TRAVEL OUTSIDE OF THE [place] IN LAST 30 DAYS: No - HEENT HEENT: Atraumatic, Normal ENT Exam, Normocephalic, PERRLA - NECK Notes: Cervical midline tenderness. - RESPIRATORY Notes: Expiratory wheeze noted anteriorly bilaterally. - CARDIOVASCULAR Cardiovascular: Regular Rate, Regular Rhythm - GI/ABDOMEN Gastrointestinal: Abdomen Soft, Abdomen Non-Tender, Normal Bowel Sounds - BACK Notes: Thoracic midline tenderness. Lumbar spine is unremarkable. There is no ecchymosis, abrasion, erythema or edema noted to the back. - NEURO Level of Consciousness: Awake, Alert, Appropriate - DERM Integumentary: Warm, Dry Course - Re-evaluation Re-evalutation: 06/18/19 17:10 Urinalysis and urine was unremarkable. Patient is not . Patient still has a minimal amount of expiratory wheeze anteriorly but not noted posteriorly. Patient is in no acute distress at this time. Breathing is even and unlabored. - Vital Signs Vital signs: Temp Pulse Resp BP Pulse Ox 98.4 F 76 18 138/95 H 96 06/18/19 14:14 06/18/19 14:14 06/18/19 14:14 06/18/19 14:14 06/18/19 14:14 - Laboratory Laboratory results interpreted by me: 06/18/19 17:10 Laboratory 06/18/19 16:38 Urine Color YELLOW Urine Appearance CLEAR Urine pH 5.0 Ur Specific [place] 1.018 Urine Protein NEGATIVE Urine Glucose (UA) NEGATIVE Urine Ketones NEGATIVE Urine Blood NEGATIVE Urine Nitrite NEGATIVE Urine Bilirubin NEGATIVE Urine Urobilinogen NEGATIVE Ur Leukocyte Esterase TRACE H Urine WBC (Auto) 3 Urine RBC (Auto) 1 Urine Bacteria (Auto) TRACE Squamous Epi Cells Auto 1 Urine Mucus (Auto) RARE Urine Ascorbic Acid NEGATIVE Urine HCG, Qual NEGATIVE - Diagnostic Test Radiology reviewed: Reports reviewed Radiology results interpreted by me: 06/18/19 16:[address] 06/18/19 15:37 IMPRESSION: NO ACUTE OR SIGNIFICANT FINDINGS IN THE CERVICAL SPINE. Chest X-Ray 06/18/19 15:37 IMPRESSION: NO ACUTE RADIOGRAPHIC FINDING IN THE CHEST. Head CT 06/18/19 15:37 IMPRESSION: NORMAL BRAIN CT WITHOUT CONTRAST. EVIDENCE OF ACUTE STROKE: NO. Thoracic Spine X-Ray 06/18/19 15:37 IMPRESSION: NO SIGNIFICANT RADIOGRAPHIC FINDING IN THE THORACIC SPINE. Discharge - Discharge Clinical Impression: Wheezing, Bronchitis, Amenorrhea Fall Qualifiers: Encounter type: initial encounter Qualified Code(s): W19.XXXA - Unspecified fall, initial encounter Back pain Qualifiers: Back pain location: thoracic back pain Chronicity: acute Back pain laterality: midline Qualified Code(s): M54.6 - Pain in thoracic spine Condition: Stable Disposition: HOME, SELF-CARE Instructions: Ice Packs ([facility]), Muscle Strain ([facility]), Warm Packs ([facility]) Additional Instructions: Today you were seen in the emergency department after a fall. All of your x-ray and CT scans were negative. Do expect to be sore over the next few days. You may want to use cool compresses or warm packs to the area. Please follow-up with your primary care physician for a reevaluation if you continue to have pain or discomfort. I am prescribing you Moore 6 tablets to take as needed for pain. Do not drive on this medication. Please seek medical attention if you have numbness or tingling in your upper or lower extremities, develop a fever, feel like you are in a sickle cell crisis, or develop any new or concerning symptoms. You are also noted to have some wheezing on examination. You had recently just been treated with oral steroids for a upper respiratory infection. Your chest x-ray was normal did not show a pneumonia. I will give you a shot of Decadron which is a steroid prior to discharge as well as a albuterol inhaler to take 2 puffs every 4 hours as needed. Please follow-up with your primary care physician. Urinalysis was negative for any acute UTI. A urine culture has been sent so this is positive with the next few days you will be contacted to be placed on antibiotics. You are not at this time. Please follow-up with your primary care physician. Referrals: CHICHI MERRITT DO [Primary Care Provider] - Follow up as needed
--- NOTE | 2019-06-18 16:40 | RADIOLOGY REPORT (SQ) ---
EXAM DESCRIPTION: CT HEAD WITHOUT COMPLETED DATE/TIME: 06/18/2019 4:07 pm REASON FOR STUDY: fell down 14 steps COMPARISON: None. TECHNIQUE: Axial images acquired through the brain without intravenous contrast. Images reviewed wi th bone, brain and subdural windows. Additional sagittal and coronal reconstructions were generated. Images stored on PACS. All CT scanners at this facility use dose modulation, iterative reconstruction, and/or weight based d osing when appropriate to reduce radiation dose to as low as reasonably achievable (ALARA). [facility]: Dose Right [facility]: CareDose [facility]: Dose Right [facility]: Teradose 4D [facility]: Smart [employer] RADIATION DOSE: CT Rad equipment meets quality standard of care and radiation dose reduction techniq ues were employed. CTDIvol: 48.6 mGy. DLP: 930 mGy-cm. mGy. LIMITATIONS: None. FINDINGS: VENTRICLES: Normal size and contour. CEREBRUM: No masses. No hemorrhage. No midline shift. No evidence for acute infarction. Normal gra y/white matter differentiation. No areas of low density in the white matter. CEREBELLUM: No masses. No hemorrhage. No alteration of density. No evidence for acute infarction. EXTRAAXIAL SPACES: No fluid collections. No masses. ORBITS AND GLOBE: No intra- or extraconal masses. Normal contour of globe without masses. CALVARIUM: No fracture. PARANASAL SINUSES: No fluid or mucosal thickening. SOFT TISSUES: No mass or hematoma. OTHER: No other significant finding. IMPRESSION: NORMAL BRAIN CT WITHOUT CONTRAST. EVIDENCE OF ACUTE STROKE: NO. COMMENT: Quality ID # [id number]: Final reports with documentation of one or more dose reduction techniques (e.g., Automated exposure control, adjustment of the mA and/or kV according to patient size, use of iterative reconstruction technique) TECHNICAL DOCUMENTATION: JOB ID: [id number] [employer]- All Rights Reserved Reading location - IP/workstation name: [email or web address]
--- NOTE | 2019-06-18 16:42 | RADIOLOGY REPORT (SQ) ---
EXAM DESCRIPTION: CT CERVICAL SPINE WITHOUT COMPLETED DATE/TIME: 06/18/2019 4:07 pm REASON FOR STUDY: fell down 14 steps COMPARISON: None. TECHNIQUE: Axial images acquired through the cervical spine without intravenous contrast. Images re viewed with lung, soft tissue and bone windows. Reconstructed coronal and sagittal MPR images review ed. Images stored on PACS. All CT scanners at this facility use dose modulation, iterative reconstruction, and/or weight based d osing when appropriate to reduce radiation dose to as low as reasonably achievable (ALARA). [facility]: Dose Right [facility]: CareDose [facility]: Dose Right [facility]: Teradose 4D [facility]: [employer] RADIATION DOSE: CT Rad equipment meets quality standard of care and radiation dose reduction techniq ues were employed. CTDIvol: 22.0 mGy. DLP: 502 mGy-cm. mGy. LIMITATIONS: None. FINDINGS: ALIGNMENT: Anatomic. MINERALIZATION: Normal. VERTEBRAL BODIES: No fractures or dislocation. DISCS: No significant disc disease. FACETS, LATERAL MASSES, POSTERIOR ELEMENTS: No fractures. No dislocation. No acute findings. HARDWARE: None in the spine. VISUALIZED RIBS: No fractures. LUNG APICES AND SOFT TISSUES: No significant or acute findings. OTHER: No other significant finding. IMPRESSION: NO ACUTE OR SIGNIFICANT FINDINGS IN THE CERVICAL SPINE. TECHNICAL DOCUMENTATION: JOB ID: [id number] Quality ID # [id number]: Final reports with documentation of one or more dose reduction techniques (e.g., Au tomated exposure control, adjustment of the mA and/or kV according to patient size, use of iterative reconstruction technique) 2010 [employer]- All Rights Reserved Reading location - IP/workstation name: [email or web address]
--- NOTE | 2019-06-18 16:43 | RADIOLOGY REPORT (SQ) ---
EXAM DESCRIPTION: CHEST 2 VIEWS COMPLETED DATE/TIME: 06/18/2019 4:25 pm REASON FOR STUDY: cough x 1 month, + wheezing COMPARISON: 05/28/2019 EXAM PARAMETERS: NUMBER OF VIEWS: two views TECHNIQUE: Digital Frontal and Lateral radiographic views of the chest acquired. RADIATION DOSE: NA LIMITATIONS: none FINDINGS: LUNGS AND PLEURA: No opacities, masses or pneumothorax. No pleural effusion. MEDIASTINUM AND HILAR STRUCTURES: No masses or contour abnormalities. HEART AND VASCULAR STRUCTURES: Heart normal size. No evidence for failure. BONES: No acute findings. HARDWARE: None in the chest. OTHER: No other significant finding. IMPRESSION: NO ACUTE RADIOGRAPHIC FINDING IN THE CHEST. TECHNICAL DOCUMENTATION: JOB ID: [id number] [employer]- All Rights Reserved Reading location - IP/workstation name: [email or web address]
--- NOTE | 2019-06-18 16:44 | RADIOLOGY REPORT (SQ) ---
EXAM DESCRIPTION: T SPINE AP/LAT COMPLETED DATE/TIME: 06/18/2019 4:25 pm REASON FOR STUDY: fell down 14 steps COMPARISON: None. NUMBER OF VIEWS: Two views. TECHNIQUE: AP and lateral radiographic images acquired of the thoracic spine. LIMITATIONS: None. FINDINGS: MINERALIZATION: Normal. ALIGNMENT: Normal. No scoliosis. VERTEBRAE: No fracture or bone lesion. Maintained height, normal segmentation. DISCS: No significant loss of height or significant narrowing. No large osteophytes. HARDWARE: None in the spine. MEDIASTINUM AND SOFT TISSUES: Normal heart size and aortic contour. No soft tissue abnormality. VISUALIZED LUNG HOGAN: Clear. OTHER: No other significant finding. IMPRESSION: NO SIGNIFICANT RADIOGRAPHIC FINDING IN THE THORACIC SPINE. TECHNICAL DOCUMENTATION: JOB ID: [id number] [employer]- All Rights Reserved Reading location - IP/workstation name: [email or web address]
[2019-06-18 17:04] LABS: APPEARANCE,URINE CLEAR; BILIRUBIN,URINE NEGATIVE (NEGATIVE); COLOR,URINE YELLOW; GLUCOSE, URINE NEGATIVE (NEGATIVE); KETONES,URINE NEGATIVE (NEGATIVE); LEUKOCYTE ESTERASE,URINE TRACE (NEGATIVE); NITRITE,URINE NEGATIVE (NEGATIVE); PROTEIN,URINE NEGATIVE (NEGATIVE); URINE SPECIFIC GRAVITY 1.018; UROBILINOGEN,URINE NEGATIVE mg/dL (<2.0)
[2019-06-18] MEDS ORDERED: ALBUTEROL SULFATE HFA (90 MCG/PUFF) 8 GM MDI (1 MDI/ER DISP) IH PRN (17:12)
[2019-06-18] MEDS ORDERED: DEXAMETHASONE SOD PHOS INJ 10 MG/1 ML VIAL IM ONE (17:18)
[2019-06-18] MEDS ORDERED: HYDROCODONE/ACETAMINOPHEN 5-325 MG (6 TAB/ER DISP) PO PRN (17:20)
[2019-06-18 17:47] VITALS: BP 143/96
== END 2019-06-18 17:57 | disposition home or self-care (01) ==
LOC: ER 14:04
DX: J40 Bronchitis, not specified as acute or chronic (principal); M54.6 Pain in thoracic spine; N91.2 Amenorrhea, unspecified; W10.9XXA Fall (on) (from) unspecified stairs and steps, initial encounter; E11.9 Type 2 diabetes mellitus without complications; E78.00 Pure hypercholesterolemia, unspecified; I10 Essential (primary) hypertension; Z90.49 Acquired absence of other specified parts of digestive tract; Z98.51 Tubal ligation status
CPT/HCPCS: 87086; 81025; 81001; 71046; 72070; 70450; 72125; J1100; J3490; J7620; 99284

== ENCOUNTER 2019-08-17 23:14 | Emergency (ER) | payer MEDICAID ==
[2019-08-18 00:05] VITALS: BP 146/99
[2019-08-18 00:37] LABS: ABSOLUTE BASOPHILS # (AUTO) 0.1 10^3/uL (0.0-0.2); ABSOLUTE EOSINOPHILS # (AUTO) 0.3 10^3/uL (0.0-0.6); ABSOLUTE LYMPHOCYTES (AUTO) 2.7 10^3/uL (0.5-4.7); ABSOLUTE MONOCYTES (AUTO) 0.7 10^3/uL (0.1-1.4); ABSOLUTE NEUT (AUTO) 5.5 10^3/uL (1.7-8.2); BASOPHILS % (AUTO) 0.7 % (0-2); EOSINOPHILS % (AUTO) 2.8 % (0-6); HEMATOCRIT 38.5 % (36.0-47.0); HEMOGLOBIN 12.7 g/dL (12.0-15.5); LYMPHOCYTES % (AUTO) 29.3 % (13-45); MEAN CORPUSCULAR HEMOGLOBIN 23.1 pg (27.0-33.4); MEAN CORPUSCULAR HGB CONC 32.9 g/dL (32.0-36.0); MEAN CORPUSCULAR VOLUME 70 fl (80-97); MONOCYTES % (AUTO) 7.7 % (3-13); PLATELET COUNT 318 10^3/uL (150-450); RED BLOOD COUNT 5.49 10^6/uL (3.72-5.28); SEGMENTED NEUTROPHILS % (AUTO) 59.5 % (42-78); TOTAL CELLS COUNTED % (AUTO) 100 %; WHITE BLOOD COUNT 9.3 10^3/uL (4.0-10.5)
[2019-08-18 00:49] LABS: APPEARANCE,URINE SLIGHTLY-CLOUDY; BILIRUBIN,URINE NEGATIVE (NEGATIVE); COLOR,URINE YELLOW; GLUCOSE, URINE NEGATIVE (NEGATIVE); KETONES,URINE NEGATIVE (NEGATIVE); LEUKOCYTE ESTERASE,URINE SMALL (NEGATIVE); NITRITE,URINE NEGATIVE (NEGATIVE); PROTEIN,URINE NEGATIVE (NEGATIVE); URINE SPECIFIC GRAVITY 1.018; UROBILINOGEN,URINE NEGATIVE mg/dL (<2.0)
== END 2019-08-18 04:00 | disposition left against medical advice (07) ==
LOC: ER 23:14
DX: Z53.21 Procedure and treatment not carried out due to patient leaving prior to being seen by health care provider (principal)
CPT/HCPCS: 36415; 81001; 81025; 85025

== ENCOUNTER 2019-12-25 07:20 | Emergency (ER) | payer SELFPAY ==
--- NOTE | 2019-12-25 08:04 | ER Document Report ---
ED General - General Chief Complaint: Abdominal Pain Stated Complaint: ABDOMINAL PAIN Time Seen by Provider: 12/25/19 08:01 Primary Care Provider: CHICHI MERRITT DO [Primary Care Provider] - Follow up as needed Mode of Arrival: Ambulatory Information source: Patient Notes: Patient is a 44-year-old female presenting to the emergency department chief complaint of abdominal pain. Patient states is been ongoing for approximately 2 weeks she reports pain is periumbilical and she has had nausea without vomiting or diarrhea. 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 Patient denies travel history no trauma history no recent change in medications. TRAVEL OUTSIDE OF THE [place] IN LAST 30 DAYS: No - HPI Onset: Other - 2 weeks Onset/Duration: Gradual, Worse Quality of pain: Achy, Pressure Severity: Moderate Pain Level: 2 Associated symptoms: Nausea Exacerbated by: Denies Relieved by: Denies Similar symptoms previously: Yes Recently seen / treated by doctor: No - Related Data Allergies/Adverse Reactions: No Known Allergies Allergy (Verified 05/28/19 16:21) Home Medications: metformin Past Medical History - General Information source: Patient - Social History Smoking Status: Former Smoker Frequency of alcohol use: None Drug Abuse: None Family History: Reviewed & Not Pertinent Patient has suicidal ideation: No Patient has homicidal ideation: No - Past Medical History Cardiac Medical History: Reports: Hx Hypercholesterolemia, Hx Hypertension Pulmonary Medical History: Reports: Hx Bronchitis Endocrine Medical History: Reports: Hx Diabetes Mellitus Type 2 Renal/ Medical History: Denies: Hx Peritoneal Dialysis Past Surgical History: Reports: Hx Section, Hx Cholecystectomy, Hx Tubal Ligation - Immunizations Immunizations up to date: Yes Review of Systems - Review of Systems Notes: REVIEW OF SYSTEMS: CONSTITUTIONAL : Per HPI EENT: Denies eye, ear, throat, or mouth pain or symptoms. Denies nasal or sinus congestion. CARDIOVASCULAR: Denies chest pain. RESPIRATORY: Denies cough, cold, or chest congestion. Denies shortness of breath, difficulty breathing, or wheezing. GASTROINTESTINAL: Per HPI GENITOURINARY: Denies difficulty urinating, painful urination, burning, jason quency, or blood in urine. MUSCULOSKELETAL: Denies neck or back pain or joint pain or swelling. SKIN: Denies rash or skin lesions. HEMATOLOGIC : Denies easy bruising or bleeding. NEUROLOGICAL: Denies altered mental status or loss of consciousness. Denies headache. Denies weakness or paralysis or loss of use of either side. Denies problems with gait or speech. Denies sensory or motor loss. PSYCHIATRIC: Denies suicidal or homicidal ideations 10 Systems are negative unless otherwise specified above Physical Exam - Vital signs Vitals: Temp Pulse Resp BP Pulse Ox 98.3 F 77 16 149/95 H 99 12/25/19 07:27 12/25/19 07:27 12/25/19 07:27 12/25/19 07:27 12/25/19 07:27 - Notes Notes: PHYSICAL EXAMINATION: GENERAL: Time of presentation patient is alert and oriented moaning because of periumbilical pain HEAD: Atraumatic, normocephalic. EYES: Pupils equal round and reactive to light, extraocular movements intact, sclera anicteric, conjunctiva are normal. ENT: nares patent, oropharynx clear without exudates. Moist mucous membranes. NECK: Normal range of motion, supple without lymphadenopathy, no appreciable JVD LUNGS: Lungs demonstrate rhonchi diffusely HEART: Regular rate and rhythm without murmurs ABDOMEN: Soft patient does have pain in the periumbilical region with guarding there is no rebound there is no McBurney point tenderness no Pettit sign no palpable or pulsatile masses. EXTREMITIES: Active full range of motion, no pitting or edema. No cyanosis. 2+ pulses x4 NEUROLOGICAL: No focal neurological deficits. Moves all extremities spontaneously and on command. SKIN: Warm, Dry, and intact. Normal turgor, no rashes or lesions noted. Course - Re-evaluation Re-evalutation: 12/25/19 10:12 Patient has been reevaluated several times while in the emergency department. Patient has remained stable without decompensation. After review of applicable laboratory and/or radiologic results, there are no signs of acute abdomen to include: acute appendicitis, pancreatitis, cholelithiasis or cholecystitis, bowel obstruction or ileus, there are no signs of Aortic Dissection, diverticulitis or diverticulosis, Kidney abnormalities to include urinary tract infection, renal failure or kidney stones. No signs of Ovarian torsion or any other acute life-threatening process. At this time I feel the patient is stable for discharge. I have reviewed the laboratory and/or radiologic results with the patient answered all questions. Patient is agreeable with discharge at this time. Patient is recommended to follow-up with primary care provider and or general surgery in the next several days for follow-up. Patient should return to the emergency department for worsening symptoms to include worsening pain, bloody vomitus, bloody diarrhea, inability to tolerate fluids or fever greater than 101 orally. - Vital Signs Vital signs: Temp Pulse Resp BP Pulse Ox 98.3 F 77 16 149/95 H 99 12/25/19 07:27 12/25/19 07:27 12/25/19 07:27 12/25/19 07:27 12/25/19 07:27 - Laboratory Result Diagrams: 12/25/19 08:35 12/25/19 08:35 Laboratory results interpreted by me: 12/25/19 12/25/19 07:34 08:35 RBC 5.76 H MCV 71 L MCH 23.2 L RDW 15.1 H POC Glucose 119 H Discharge - Discharge Clinical Impression: Abdominal pain Qualifiers: Abdominal location: periumbilical Qualified Code(s): R10.33 - Periumbilical pain Umbilical hernia Qualifiers: Obstruction and gangrene presence: without obstruction or gangrene Qualified Code(s): K42.9 - Umbilical hernia without obstruction or gangrene Condition: Stable Disposition: HOME, SELF-CARE Instructions: Abdominal Pain ([facility]), Antinausea Medication ([facility]) Additional Instructions: Hernia You have a hernia. A hernia forms at a weak spot in the abdominal wall. Bowel slips out of the abdominal cavity into the weak spot. Hernias tend to occur in the groin (especially in males), the fold of the thigh, the naval, or at a surgical scar. Surgical repair of the defect is usually necessary. The problem tends to get worse. It's important that you follow up as recommended. For now, you should avoid straining, heavy lifting, and vigorous exercise. Complications occur if the hernia becomes tightly stuck. You should come back immediately if the area becomes increasingly painful, swollen, or discolored, or if you develop abdominal pain and vomiting. Prescriptions: Ondansetron [Zofran Odt 4 mg Tablet] 1 - 2 tab PO Q4H PRN #15 tab.rapdis PRN Reason: For Nausea/Vomiting Forms: Return to Work Referrals: CHICHI MERRITT DO [Primary Care Provider] - Follow up as needed SUPRIYA AVILA MD [ACTIVE STAFF] - Follow up as needed
[2019-12-25] MEDS ORDERED: ONDANSETRON HCL INJ/PF 4 MG/2 ML SDV IV ONE (08:24)
[2019-12-25] MEDS ORDERED: NORMAL SALINE 1000 ML 1,000 ML IV ONE (08:24)
[2019-12-25 08:50] LABS: ABSOLUTE EOSINOPHILS # (AUTO) 0.2 10^3/uL (0.0-0.6); ABSOLUTE LYMPHOCYTES (AUTO) 1.5 10^3/uL (0.5-4.7); ABSOLUTE MONOCYTES (AUTO) 0.4 10^3/uL (0.1-1.4); ABSOLUTE NEUT (AUTO) 3.6 10^3/uL (1.7-8.2); BASOPHILS % (AUTO) 0.3 % (0-2); EOSINOPHILS % (AUTO) 3.4 % (0-6); HEMATOCRIT 40.6 % (36.0-47.0); HEMOGLOBIN 13.4 g/dL (12.0-15.5); MEAN CORPUSCULAR HEMOGLOBIN 23.2 pg (27.0-33.4); MEAN CORPUSCULAR VOLUME 71 fl (80-97); MONOCYTES % (AUTO) 7.4 % (3-13); PLATELET COUNT 331 10^3/uL (150-450); RED BLOOD COUNT 5.76 10^6/uL (3.72-5.28); RED CELL DISTRIBUTION WIDTH 15.1 % (11.5-14.0); SEGMENTED NEUTROPHILS % (AUTO) 62.9 % (42-78); TOTAL CELLS COUNTED % (AUTO) 100 %; WHITE BLOOD COUNT 5.8 10^3/uL (4.0-10.5)
[2019-12-25 08:53] LABS: APPEARANCE,URINE CLEAR; BILIRUBIN,URINE NEGATIVE (NEGATIVE); COLOR,URINE YELLOW; GLUCOSE, URINE NEGATIVE (NEGATIVE); KETONES,URINE NEGATIVE (NEGATIVE); LEUKOCYTE ESTERASE,URINE NEGATIVE (NEGATIVE); NITRITE,URINE NEGATIVE (NEGATIVE); PROTEIN,URINE NEGATIVE (NEGATIVE); URINE SPECIFIC GRAVITY 1.016; UROBILINOGEN,URINE NEGATIVE mg/dL (<2.0)
[2019-12-25 09:03] LABS: ALKALINE PHOSPHATASE 84 U/L (38-126); ANION GAP 7 (5-19); ASPARTATE AMINO TRANSFERASE 25 U/L (14-36); BILIRUBIN,DIRECT 0.3 mg/dL (0.0-0.4); BILIRUBIN,TOTAL 0.3 mg/dL (0.2-1.3); BLOOD UREA NITROGEN 13 mg/dL (7-20); CALCIUM 9.3 mg/dL (8.4-10.2); CARBON DIOXIDE 29 mmol/L (22-30); CHLORIDE 102 mmol/L (98-107); GLUCOSE 110 mg/dL (75-110); POTASSIUM 4.3 mmol/L (3.6-5.0); TOTAL PROTEIN 7.6 g/dL (6.3-8.2)
--- NOTE | 2019-12-25 09:57 | RADIOLOGY REPORT (SQ) ---
EXAM DESCRIPTION: CT ABD/PELVIS WITH IV ONLY COMPLETED DATE/TIME: 12/25/2019 9:40 am REASON FOR STUDY: ghada umbilical pain COMPARISON: 05/17/2019. TECHNIQUE: CT scan of the abdomen and pelvis performed using helical scanning technique with dynamic intravenous contrast injection. No oral contrast. Images reviewed with lung, soft tissue, and bone windows. Reconstructed coronal and sagittal MPR images reviewed. Delayed images for evaluation of the urinary system also acquired. All images stored on PACS. All CT scanners at this facility use dose modulation, iterative reconstruction, and/or weight based d osing when appropriate to reduce radiation dose to as low as reasonably achievable (ALARA). [facility]: Dose Right [facility]: CareDose [facility]: Dose Right [facility]: Teradose 4D [facility]: MDVIP CONTRAST TYPE AND DOSE: contrast/concentration: Isovue 350.00 mg/ml; Total Contrast Delivered: 100.0 ml; Total Saline Delivered: 70.0 ml RENAL FUNCTION: BUN 13 creatinine 0.83. RADIATION DOSE: CT Rad equipment meets quality standard of care and radiation dose reduction techniq ues were employed. CTDIvol: 19.0 - 20.2 mGy. DLP: 2099 mGy-cm.. LIMITATIONS: None. FINDINGS: LOWER CHEST: No significant findings. No nodules or infiltrates. LIVER: Normal size. No masses. No dilated ducts. SPLEEN: Normal size. No focal lesions. PANCREAS: No masses. No significant calcifications. No adjacent inflammation or peripancreatic fluid collections. Pancreatic duct not dilated. GALLBLADDER: Surgically absent. ADRENAL GLANDS: No significant masses or asymmetry. RIGHT KIDNEY AND URETER: Small cysts. No solid masses. No significant calcifications. No hydrone phrosis or hydroureter. LEFT KIDNEY AND URETER: No solid masses. No significant calcifications. No hydronephrosis or hydr oureter. AORTA AND VESSELS: No aneurysm. No dissection. Renal arteries, SMA, celiac without stenosis. RETROPERITONEUM: No retroperitoneal adenopathy, hemorrhage or masses. BOWEL AND PERITONEAL CAVITY: No masses or inflammatory changes. No free fluid or peritoneal masses. APPENDIX: Normal. PELVIS: No mass. No free fluid. Normal bladder. ABDOMINAL WALL: No masses. Small umbilical hernia containing fat. BONES: No significant or acute findings. OTHER: No other significant finding. IMPRESSION: SMALL UMBILICAL HERNIA CONTAINING FAT. NO INVOLVEMENT OF BOWEL. SMALL CYST IN THE RIGH T KIDNEY. NO OTHER SIGNIFICANT OR ACUTE FINDING IN THE ABDOMEN OR PELVIS ON CT SCAN WITH IV CONTRAST . TECHNICAL DOCUMENTATION: JOB ID: [id number] Quality ID # [id number]: Final reports with documentation of one or more dose reduction techniques (e.g., Au tomated exposure control, adjustment of the mA and/or kV according to patient size, use of iterative reconstruction technique) 2010 [employer]- All Rights Reserved Reading location - IP/workstation name: [email or web address]
--- NOTE | 2019-12-25 09:58 | RADIOLOGY REPORT (SQ) ---
EXAM DESCRIPTION: CHEST SINGLE VIEW COMPLETED DATE/TIME: 12/25/2019 9:46 am REASON FOR STUDY: sob COMPARISON: None. EXAM PARAMETERS: NUMBER OF VIEWS: One view. TECHNIQUE: Single frontal radiographic view of the chest acquired. RADIATION DOSE: NA LIMITATIONS: None. FINDINGS: LUNGS AND PLEURA: No opacities, masses or pneumothorax. No pleural effusion. MEDIASTINUM AND HILAR STRUCTURES: No masses. Contour normal. HEART AND VASCULAR STRUCTURES: Heart normal in size. Normal vasculature. BONES: No acute findings. HARDWARE: None in the chest. OTHER: No other significant finding. IMPRESSION: NO ACUTE RADIOGRAPHIC FINDING IN THE CHEST. TECHNICAL DOCUMENTATION: JOB ID: [id number] 06/18/2019. 2010 [employer] All Rights Reserved Reading location - IP/workstation name: [email or web address]
[2019-12-25] MEDS ORDERED: HYDROCODONE/ACETAMINOPHEN 5-325 MG TABLET PO ONE (10:37)
[2019-12-25 10:46] VITALS: BP 119/81
== END 2019-12-25 10:47 | disposition home or self-care (01) ==
LOC: ER 07:20
DX: R10.33 Periumbilical pain (principal); K42.9 Umbilical hernia without obstruction or gangrene; R11.0 Nausea; E78.00 Pure hypercholesterolemia, unspecified; I10 Essential (primary) hypertension; E11.9 Type 2 diabetes mellitus without complications; Z90.49 Acquired absence of other specified parts of digestive tract; Z98.51 Tubal ligation status
CPT/HCPCS: 99284; 96361; 96374; 36415; 82962; 83690; 85025; 81025; 80053; 81001; 71045; 74177; J2405; J7030

== ENCOUNTER 2020-04-04 18:05 | Emergency (ER) | payer SELFPAY ==
[2020-04-04 18:14] VITALS: BP 134/82
== END 2020-04-04 19:30 | disposition left against medical advice (07) ==
LOC: ER 18:05
DX: Z53.21 Procedure and treatment not carried out due to patient leaving prior to being seen by health care provider (principal)

== ENCOUNTER 2020-07-14 09:31 | Emergency (ER) | payer SELFPAY ==
[2020-07-14 11:20] LABS: ABSOLUTE EOSINOPHILS # (AUTO) 0.3 10^3/uL (0.0-0.6); ABSOLUTE LYMPHOCYTES (AUTO) 2.2 10^3/uL (0.5-4.7); ABSOLUTE MONOCYTES (AUTO) 0.7 10^3/uL (0.1-1.4); ABSOLUTE NEUT (AUTO) 4.4 10^3/uL (1.7-8.2); BASOPHILS % (AUTO) 0.6 % (0-2); EOSINOPHILS % (AUTO) 3.7 % (0-6); HEMATOCRIT 39.5 % (36.0-47.0); HEMOGLOBIN 13.1 g/dL (12.0-15.5); LYMPHOCYTES % (AUTO) 28.5 % (13-45); MEAN CORPUSCULAR HEMOGLOBIN 23.2 pg (27.0-33.4); MEAN CORPUSCULAR HGB CONC 33.1 g/dL (32.0-36.0); MEAN CORPUSCULAR VOLUME 70 fl (80-97); MONOCYTES % (AUTO) 9.1 % (3-13); PLATELET COUNT 273 10^3/uL (150-450); RED BLOOD COUNT 5.62 10^6/uL (3.72-5.28); RED CELL DISTRIBUTION WIDTH 14.9 % (11.5-14.0); SEGMENTED NEUTROPHILS % (AUTO) 58.1 % (42-78); TOTAL CELLS COUNTED % (AUTO) 100 %; WHITE BLOOD COUNT 7.6 10^3/uL (4.0-10.5)
[2020-07-14 11:42] LABS: ALBUMIN 3.8 g/dL (3.5-5.0); ALKALINE PHOSPHATASE 93 U/L (38-126); ASPARTATE AMINO TRANSFERASE 23 U/L (14-36); BILIRUBIN,DIRECT 0.3 mg/dL (0.0-0.4); BILIRUBIN,TOTAL 0.4 mg/dL (0.2-1.3); BLOOD UREA NITROGEN 8 mg/dL (7-20); CARBON DIOXIDE 30 mmol/L (22-30); CHLORIDE 102 mmol/L (98-107); GLUCOSE 141 mg/dL (75-110); POTASSIUM 4.2 mmol/L (3.6-5.0); TOTAL PROTEIN 7.1 g/dL (6.3-8.2)
[2020-07-14 12:00] LABS: ANION GAP 4 (5-19)
[2020-07-14 12:26] VITALS: BP 147/99
--- NOTE | 2020-07-14 17:23 | ER Document Report ---
Entered by DOMENICO BOOKER SCRIBE 07/14/20 1050 Acting as scribe for:VALERIA BARNHART MD ED General - General Chief Complaint: Breathing Difficulty Stated Complaint: EAR PAIN/SORE THROAT/BACK PAIN/SWELLING LEGS & FEE Time Seen by Provider: 07/14/20 10:33 Primary Care Provider: CHICHI MERRITT DO [Primary Care Provider] - Follow up as needed Mode of Arrival: Ambulatory Information source: Patient, [facility] Records Notes: This 45 year old female patient presents to the emergency department today with complaints of ear and throat pain for the last week. Patient mentions that she only has a minimal cough at night which is her baseline from asthma. She mentions that she has been off of all her HTN and Asthma medications for over a year and she has been "swelling" since stopping her medications. TRAVEL OUTSIDE OF THE [place] IN LAST 30 DAYS: No - Related Data Allergies/Adverse Reactions: Penicillins Allergy (Verified 07/14/20 09:46) Past Medical History - General Information source: Patient, [facility] Records - Social History Smoking Status: Former Smoker - quit 2 months ago Cigarette use (# per day): No Chew tobacco use (# tins/day): No Smoking Education Provided: No Frequency of alcohol use: None Drug Abuse: None Lives with: Family Family History: Reviewed & Not Pertinent - Past Medical History Cardiac Medical History: Reports: Hx Hypercholesterolemia, Hx Hypertension Pulmonary Medical History: Reports: Hx Asthma, Hx Bronchitis Endocrine Medical History: Reports: Hx Diabetes Mellitus Type 2 Past Surgical History: Reports: Hx Section, Hx Cholecystectomy, Hx Tu bal Ligation - Immunizations Immunizations up to date: Yes Review of Systems - Review of Systems Constitutional: No symptoms reported EENT: See HPI, Ear pain, Throat pain Cardiovascular: No symptoms reported Respiratory: denies: Cough Gastrointestinal: No symptoms reported Genitourinary: No symptoms reported Female Genitourinary: No symptoms reported Musculoskeletal: No symptoms reported Skin: No symptoms reported Hematologic/Lymphatic: No symptoms reported Neurological/Psychological: No symptoms reported -: Yes All other systems reviewed and negative Physical Exam - Vital signs Vitals: Temp Pulse Resp BP Pulse Ox 99.2 F 85 16 153/104 H 96 07/14/20 09:36 07/14/20 09:36 07/14/20 09:36 07/14/20 09:36 07/14/20 09:36 - Notes Notes: Physical Exam: General: Alert, appears well. HEENT: Normocephalic. Atraumatic. PERRL. Extraocular movements intact. No posterior oropharynx erythema or exudate, airway is patent. TMs are scarred and minimally retracted bilaterally. Neck: Supple. Non-tender. Respiratory: No respiratory distress. Clear and equal breath sounds bilaterally. Cardiovascular: Regular rate and rhythm. Abdominal: Normal Inspection. Non-tender. No distension. Normal Bowel Sounds. Back: No gross abnormalities. Extremities: Moves all four extremities. Upper extremities: Normal inspection. Normal ROM. Lower extremities: Normal inspection. No edema. Normal ROM. Neurological: Normal cognition. AAOx4. Normal speech. Psychological: Normal affect. Normal Mood. Skin: Warm. Dry. Normal color. Course - Re-evaluation Re-evalutation: 07/14/20 12:09 The patient was evaluated during the global COVID-19 pandemic and that diagnosis was suspected/considered upon their initial presentation. Their evaluation, treatment and testing was consistent with current guidelines for patients who present with complaints or symptoms that may be related to COVID-19. - Vital Signs Vital signs: Temp Pulse Resp BP Pulse Ox 99.2 F 63 14 147/99 H 100 07/14/20 09:36 07/14/20 12:25 07/14/20 12:25 07/14/20 12:25 07/14/20 12:25 - Laboratory Result Diagrams: 07/14/20 11:09 07/14/20 11:09 Laboratory results interpreted by me: 07/14/20 07/14/20 07/14/20 11:09 11:09 11:09 RBC 5.62 H MCV 70 L MCH 23.2 L RDW 14.9 H Sodium 136.3 L Anion Gap 4 L Glucose 141 H Hemoglobin A1c % 6.9 H - EKG Interpretation by Ca EKG shows normal: Sinus rhythm, Manly, Intervals, QRS Complexes. abnormal: ST-T Waves - Borderline anterolateral T abnormalities Rate: Normal - 66 Rhythm: NSR When compared to previous EKG there are: No significant change Discharge - Discharge Clinical Impression: Viral syndrome, Peripheral edema, Has run out of medications, Encounter for laboratory testing for COVID-19 virus Asthma Qualifiers: Asthma severity: mild Asthma persistence: unspecified Asthma complication type: uncomplicated Qualified Code(s): J45.909 - Unspecified asthma, uncomplicated High blood pressure Qualifiers: Hypertension type: essential hypertension Qualified Code(s): I10 - Essential (primary) hypertension Condition: Stable Disposition: HOME, SELF-CARE Instructions: COVID-19 Guidance for Persons Under Investigation Additional Instructions: Viral Syndrome The physician has diagnosed a viral infection. Viruses not only cause "colds," but can cause many different symptoms including generalized aching, fever, headache, cough, diarrhea, nausea, vomiting, and fatigue. The treatment, for the most part, is simply relief of symptoms. This means that antibiotics are usually not given. Rest, fluids, pain medications and, occasionally, medication for the specific symptoms that are most bothersome will be prescribed. Use good handwashing to avoid passing the virus to others. Shared toys should be cleaned with disinfectant. Clean the toilets, sinks, and counter surfaces in bathrooms. Launder clothing in hot water. Contact the physician if you develop any new or unusual symptoms such as severe headache, stiff neck, high fever, chest pain, productive cough, or shortness of breath. You should be rechecked if you don't see marked improvement within seven to 10 days. Edema, Peripheral You have swelling in your legs. This is called peripheral edema. It can be caused by "leaky capillaries," inflammation, disease of the leg veins, or excess salt and water in your body. Edema may be a sign of heart, kidney, or liver disease. A medical evaluation can determine if there is a serious underlying cause for your edema. Avoid prolonged standing. If you must sit for a long time, occasionally get up and walk around or elevate your legs. Support stockings can be helpful in limiting swelling. Often diuretic or water pills are used to remove excess salt and water from your body. Call the doctor or return if you develop increased swelling, pain, or redness, shortness of breath, chest pain, or any other significant change. High Blood Pressure, Requiring Treatment Your blood pressure is high. This is called "hypertension." Your history and exam suggest that this is not a temporary problem. You need treatment of your blood pressure. Pre-hypertension/Hypertension: The patient has been informed that they may have pre-hypertension or Hypertension based on a blood pressure reading in the emergency department. I recommend that the patient call the primary care provider listed on their discharge instructions or a physician of their choice this wee to arrange follow up for further evaluation of possible pre- hypertension or Hypertension. If left untreated, high blood pressure greatly increases your risk of heart attack and stroke. Please don't ignore this problem. If you have blood pressure medicine but aren't using it regularly, start taking it again. Some simple things you can do to help are: Get some aerobic exercise for at least 20 minutes on a daily basis. (See your doctor before beginning any new exercise program.) Eat a low-fat diet. Lose excess weight. Avoid salty foods and avoid adding salt to any of the foods you eat. Avoid diet pills, decongestants, "energizing" herbs, and other medicines that elevate blood pressure. There are many different medicines that treat blood pressure. If your medication causes unpleasant side effects, call your doctor. There are others you can try. Treating hypertension is a life-long investment in your health. Take the medications as prescribed for your high blood pressure, swelling, and diabetes. Use the inhaler for wheezing at night if needed. Take cyud-igw-monvmas cough and cold medications if needed for your symptoms. Self isolate at home until you get the results of the COVID test. Follow-up with your primary care provider is over at [facility] to manage your high blood pressure and diabetes. RETURN TO THE EMERGENCY ROOM IF ANY NEW OR WORSENING SYMPTOMS. Prescriptions: Lisinopril/Hydrochlorothiazide [Lisinopril-Hctz 20-12.5 mg Tab] 1 each PO DAILY #30 tablet Metformin HCl 500 mg PO BID #60 tablet Albuterol Sulfate [Proair Hfa Inhalation Aerosol 8.5 gm Mdi] 2 puff IH ASDIR PRN #1 mdi PRN Reason: Referrals: CHICHI MERRITT DO [Primary Care Provider] - Follow up as needed I personally performed the services described in the documentation, reviewed and edited the documentation which was dictated to the scribe in my presence, and it accurately records my words and actions.
--- NOTE | 2020-07-14 17:25 | EKG REPORT ---
SEVERITY:- BORDERLINE ECG - SINUS RHYTHM BORDERLINE T ABNORMALITIES, ANT-LAT LEADS : Confirmed by: Ivis Solorio 14-Jul-2020 17:24:25
== END 2020-07-14 12:25 | disposition home or self-care (01) ==
LOC: ER 09:31
DX: B34.9 Viral infection, unspecified (principal); H92.09 Otalgia, unspecified ear; R07.0 Pain in throat; I10 Essential (primary) hypertension; E11.9 Type 2 diabetes mellitus without complications; J45.909 Unspecified asthma, uncomplicated; Z87.891 Personal history of nicotine dependence; Z88.0 Allergy status to penicillin; Z20.828 Contact with and (suspected) exposure to other viral communicable diseases
CPT/HCPCS: 93005; 99284; 36415; 87070; 87880; 85025; 87635; 87077; 80053; 83036; 83880; 93010; C9803